=== PATIENT | male | born 1945 | race Caucasian/White ===

== ENCOUNTER 2024-09-28 18:50 | Emergency (ER) | payer MEDICARE, SELFPAY ==
--- OUTSIDE RECORDS SUMMARY | 2024-08-10 10:00 | XMS_ITS | Encounter Summary ---
Author Organization [employer] ([place], [place], [place]) Address [address] [place] [address] Care Team Providers Care Upholstery Handler Name Role Phone Sierra Choi APRN Primary Care Provider + [phone] Troy Boucher MD Unavailable Hay Parker MD Unavailable [phone] Reason for Referral * Surgical (Routine) - Closed Specialty Diagnoses / Procedures Referred By Contac t Referred To Contact Neurosurgery Diagnoses History of lumbar fusion DDD (degenerative disc disease), lumbar Malini Ochoa PA-C [address] [place] [address] Phone: tel: fax: Referral ID Status Reason Start Date Expiration Date V isits Requested Visits Authorized [id number] Closed Specialty Services Required 08/10/2024 08/10/2025 1 1 * Diagnostic X-Ray (Routine) - Closed Specialty Diagnoses / Procedures Referred By Contac t Referred To Contact Radiology Diagnoses Right-sided low back pain without sciatica, unspecified chronicity Procedures XR spine lumbar 2 or 3 views Malini Ochoa PA-C [address] [place] [address] Phone: tel: fax: [facility] Diagnostic Imaging [address] [place] [address] Phone: tel: fax: Referral ID Status Reason Start Date Expiration Date Visits Re quested Visits Authorized [id number] Closed 08/10/2024 08/10/2025 1 1 Reason for Visit * Reason Comments Follow-up Right shoulder Back Pain Lower back Encounter Details Date Type Department Care Team (Late st Contact Info) Description 08/10/2024 10:00 AM EDT [facility] [address] [place] [address] Malini Ochoa PA-C [address] [place] [address] Right-sided low back pain without sciatica, unspecified chronicity (Primary Dx); Right rotator cuff tendonitis; Strain of right trapezius muscle, subsequent encounter; Arthritis of right acromioclavicular joint; Arthritis of left acromioclavicular joint; Osteoarthritis of right glenohumeral joint; History of lumbar fusion; DDD (degenerative disc disease), lumbar Social History Tobacco Use Types Packs/Day Years Used Date Smoking Tobacco: Never Smokeless Tobacco: Never Alcohol Use Standard Drinks/Week Comments Not Currently 0 (1 standard drink = 0.6 oz pur e alcohol) [facility] - Mental Health Answer Date Recorde d Little interest or pleasure in doing things Not at all 06/19/2024 Feeling down, depressed, or hopeless Not at all 06/19/2024 Feeling of Stress Not on file 06/19/2024 Family and Community Support Answer Rob e Recorded Help with Day to Day Activities Not on file 03/10/2023 Feeling Lonely or Isolated Not on file 03/10 Educational Attainment Answer Date Vick rded Speak language other than [place] Island[place] at home Not on file 03/10/2023 Want help with school or training Not on file 03/10/2023 Substance Use Answer Date Recorded Used prescription meds for non-medical reasons N ot on file 03/10/2023 Used illegal drugs past 12 months Not on file 03/10/2023 Sex and Gender Information Value Date Recorded Sex Assigned at Not on file Legal Sex Male 5:19 PM CDT Gender Identity Not on file Sexual Orientation Not on file documented as of this encounter Last Filed Vital Signs Vital Sign Reading Time Taken Comments Blood Pressure 131/83 08/10/2024 10:26 AM EDT Pulse 70 08/10/2024 10:26 AM EDT Temperature - - Respiratory Rate 18 08/10/2024 10:25 AM EDT Oxygen Saturation - - Inhaled Oxygen Concentration - - Weight 104.3 kg (230 lb) 08/10/2024 10:25 AM EDT Height 188 cm (6' 2 ) 08/10/2024 10:25 AM EDT Body Mass Index 29.53 08/10/2024 10:25 AM EDT documented in this encounter Progress Notes * Malini Ochoa PA-C - 08/10/2024 10:00 AM EDT Images from the original note were not included. NAME: Leander Dennis CSN: [id number] : 1945 PCP: Sierra Choi APRN REASON FOR VISIT Follow-up (Right shoulder) and Back Pain (Lower back) Is this Worker's Comp? No HPI Leander Dennis is a 79 y.o. male Patient presents for a follow-up on right shoulder today. Patient states that his symptoms have worsened. Patient states that he is attending PT. They deny any new injuries or complications. Patient reports that he taking oral or topical medications. They rate the severity of their pain today as: 7/10. Patient reports that pain radiates down arm now, and has some tingling with certain ROM. Patient reports that his shoulder is worse when laying on that side. Established patient Date of Injury: Denies any injury Started 2-3 days ago Location of pain: lumbar/sacral Quality of pain: aching and throbbing Radiation of pain: does not radiate Severity of pain: 7/10 getting up from seated position Worse with: bending forwards and getting up from sitting position Better with: Denies Medications/ice: Denies Associated Symptoms: right sided lower back pain Prior history of back pain: 5 years ago Previous trauma: surgery on L4-5 back surgery No history of weight loss, fevers, numb groin/buttocks, urinary or stooling difficulties, weak legs, Hx of cancer, prolonged use of steroids, IV drug use, or recent surgery CURRENT MEDICATIONS Current Outpatient Medications Medication Instructions ALPRAZolam (XANAX) 0.25 MG tablet 1 tablet, 3 times daily PRN aspirin 81 MG EC tablet aspirin 81 mg tablet,delayed release Daily atenoloL (TENORMIN) 25 mg, oral, 2 times daily Gemtesa 75 mg, Every other day hydroCHLOROthiazide (HYDRODIURIL) 12.5 mg, oral, Daily lovastatin (MEVACOR) 20 MG tablet TAKE 1 TABLET EVERY DAY meloxicam (MOBIC) 15 mg, oral, Daily memantine (NAMENDA) 10 mg, 2 times daily multivitamin with minerals tablet 1 tablet, Daily pantoprazole (PROTONIX) 40 mg, oral, Daily polyethylene glycol (MIRALAX) 17 g, Daily sucralfate (CARAFATE) 1 g, oral, 4 times daily tamsulosin (FLOMAX) 0.4 mg cap 24 hr capsule TAKE 1 CAPSULE EVERY DAY ALLERGIES Allergies Allergen Reactions Butorphanol Nausea And Vomiting, Rash and Other (See Comments) Promethazine Nausea And Vomiting, Rash and Other (See Comments) PAST MEDICAL/SURGICAL HISTORY Past Medical History: Diagnosis Date Cancer (HCC) 2003 colon GERD (gastroesophageal reflux disease) Hyperlipemia Hypertension Neuropathy Prostate disease Tremors of nervous system controlled with meds Past Surgical History: Procedure Laterality Date APPENDECTOMY BACK SURGERY CATARACT EXTRACTION, BILATERAL COLON SURGERY colon resection left side, approx 12 inches removed, no other treatement required CORRECTION HAMMER TOE EXCISION,ARM/ELBOW TUMOR Left 03/24/2023 Procedure: EXCISION, NEOPLASM, UPPER ARM OR ELBOW REGION; Surgeon: Hay Parker MD; Location: [facility]; Service: Orthopaedic Surgery; Laterality: Left; LEFT FLANK AND LEFT ELBOW HAND SURGERY HEMORRHOIDECTOMY INGUINAL HERNIA REPAIR MASS EXCISION removed from left forearm REPLACEMENT TOTAL KNEE Right ROTATOR CUFF REPAIR Bilateral 1984, 1985, continued cortisone shots B shoulders UPPER ENDOSCOPY,BIOPSY 11/04/2023 Procedure: ENDOSCOPY, UPPER GI TRACT, WITH BIOPSY; Surgeon: Troy Boucher MD; Location: [facility]; Service: General Surgery;; VASECTOMY WRIST ARTHRODESIS SOCIAL HISTORY Social History Tobacco Use Smoking status: Never Smokeless tobacco: Never Vaping Use Vaping status: Never Used Substance Use Topics Alcohol use: Not Currently Drug use: Never FAMILY HISTORY Family History Problem Relation Name Age of Onset Arthritis Mother Lung cancer Father Hypertension Sister Rheumatologic disease Other Cancer Other REVIEW OF SYSTEMS General: No recent fever or chills, no recent weight loss or weight gain, no insomnia HEENT: No change in vision, no glasses/contacts, no hearing loss, no tinnitus, no vertigo, no congestion/sinus issues CVS: No chest pain, no palpitations, no edema, no varicose veins Resp: No dyspnea, no wheezing, no cough, no hemoptysis GI: No dysphagia, no nausea, no vomiting, no heart burn, no constipation, no diarrhea : No dysuria, no hematuria, no nocturia, no history of chronic UTI Musculoskeletal: See HPI Derm: No rash, no abrasions, no skin discoloration, no history or MRSA Neuro: See HPI Endo: No cold/heat intolerance Heme: No abnormal bruising or bleeding Psych: No depression, no anxiety, no fatigue, no mood swings Scribe Attestation: IBalbina RTR acted as a scribe and transcribed components of the current encounter under the direction of the Attending Provider. I have not been involved in providing any clinical treatments or patient care. Electronically Signed, DEJA Foster OBJECTIVE Vitals: 08/10/24 1025 08/10/24 1026 BP: (!) 143/88 131/83 Pulse: 79 70 Resp: 18 Weight: 104.3 kg (230 lb) Height: 1.88 m (6' 2 ) Ortho Exam right Shoulder Exam General: Awake, Alert, Oriented x3, Well developed Appearance: - Swelling, - deformity, - skin tenting, - scapular winging Palpation: - Crepitus, Tender to palpation: posterior cuff, trap muscle Testing: + Empty Can, - Drop Arm, + Impingement, - Subscap lift off, - Apprehension, -Sulcus sign, -Speeds, - O'Briens, ROM: 120 AFE, 170 PFE, 60 ER, IR decreased, Abduction 90, Wrist and elbow ROM WNL Strength: 4/5 Supraspinatus, 4/5 Subscapularis, 4/5 infraspinatus Neurovascular: Intact Skin: normal appearance with no obvious discoloration or wounds Gait: Normal Cervical Spine Exam General: Awake, Alert, Oriented x3, Well developed Appearance: - localized swelling, - deformity, -masses Tenderness to palpation: - spinous process, - paraspinal, - trapezius left, + trapezius right ROM: Mildly decreased in all directions Testing: + Spurling Test Strength: 5/5 flexion extension Neurovascular: NVI Skin: normal appearance with no discoloration or wounds Lumbar Exam General: Awake, Alert, Oriented x3, Well developed Appearance: - localized swelling, - deformity, -masses Tenderness to palpation: - Spinous process, + Paraspinal tenderness, - Sacral, - Coccyx, + Right SI, - Left SI, - Piriformis, - Gluteal region. ROM: Decreased in all directions Strength: 4/5 Flexion Extension, no atrophy noted in BLE Testing: - Right sided straight leg raise, - Left sided straight leg raise, - Kristy, - FAIR test Neurovascular: NVI, -Homans Skin: normal appearance with no discoloration or wounds Gait: normal IMAGING/OUTSIDE REPORTS 2 views of the lumbar spine were performed in the [facility] office: Radiology report pending Personally reviewed by me in office: fusion of L4-L5 noted with intact well aligned hardware. Severe degenerative changes with disc space narrowing and osteophyte formation throughout lumbar spine, most pronounced at L2-L3 and L3- L4. 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 Haro 2019 Relevant Orders Ambulatory referral to Neurosurgery DDD (degenerative disc disease), lumbar Relevant Orders Ambulatory referral to Neurosurgery PLAN Return for Keep appointment 10/19/2024. For repeat shoulder injections Rest Ice Heat Continue HEP per physical therapy Discussed options for his right shoulder since his last subacromial injection did not give him muchrelief. Discussed US guided GH injection with Dr Carter or possible surgical options including reverse TSA. Also discussed some of his cervical symptoms may be playing a role as well. He would like to see the sensor specialist first, then we will re evaluate at his follow up for cortisone injectionson his right shoulder. Discussed and will place referral to Dr. Magaña as he has performed surgery on patient previously CD of xrays burned today for patient to take to sensor specialist appt. Scribe Attestation: Mary Kate Corona CMA acted as a scribe and transcribed components of the current encounter under the direction of the Attending Provider. I have not been involved in providing anyclinical treatments or patient care. Electronically Signed, Mary Kate Ronquillo CMA I, Taylor Elam, PA-C attest that I have examined the above patient. I have dictated the exam, diagnosis, and plan to the scribe listed above to be transcribed into this document. I have supplemented the above documentation as warranted. I attest that I have reviewed the above documentation in its entirety and concur. Electronically Signed, Malini Ochoa PA-C 08/10/2024 11:47 AM EDT Dharmesh Feliz: Eleno MACARIO / [facility] is undergoing an EHR transition as of this date of service. There may be a delay in uploading older paper and EHR chart data to this new system. The above encounter has been documented to the best of the provider's working knowledge of the EHR in conjunction with medical information provided by the patient (and/or the patient's family member). documented in this encounter Plan of Treatment Upcoming Encounters Date Type Department Care Team (Late st Contact Info) Description 10/19/2024 9:00 AM EDT Office Visit [facility] Orthopedics [address] [address] Malini Ochoa PA-C [address] [place] [id number] 01/24/2025 11:00 AM EST Office Visit [facility] Primary Care [address] [address] Sierra Choi, MELITON [address] [place] [address] 09/26/2025 10:30 AM EDT Office Visit [facility] Primary Care - [place] [address] [place] [address] NguyễnSierra simon, FIXED ROUTE BUS OPERATOR [address] [place] [address] Scheduled Referrals Name Type Priority Associated Diagnoses Order Schedule Ambulatory referral to Neurosurgery Outpatient Referral Routine History of lumbar fusion DDD (degenerative disc disease), lumbar Expected: 08/10/2024, Expires: 08/10/2025 documented as of this encounter Results * XR spine lumbar 2 or 3 views (08/10/2024 10:45 AM EDT) Anatomical Region Laterality Modality L-spine X-Ray 08/11/2024 10:5 9 PM EDT Impressions 08/11/2024 11:10 PM EDT Degenerative and postoperative changes. No fracture. Images reviewed, interpreted, and dictated by Ihsan Obando MD Narrative 08/11/2024 11:10 PM EDT LUMBAR SPINE, THREE VIEWS HISTORY: Pain. FINDINGS: No fracture is identified. Moderate diffuse degenerative disc disease is present most pronounced at L2-3. Mild degenerative retrolisthesis L2-3 is seen. Surgical changes of lower lumbar fusion are noted L4-5. Procedure Note Ihsan Obando MD - 08/11/2024 LUMBAR SPINE, THREE VIEWS HISTORY: Pain. FINDINGS: No fracture is identified. Moderate diffuse degenerative disc disease is present most pronounced at L2-3. Mild degenerative retrolisthesis L2-3 is seen. Surgical changes of lower lumbar fusion are noted L4-5. IMPRESSION: Degenerative and postoperative changes. No fracture. Images reviewed, interpreted, and dictated by Ihsan Obando MD us Malini Ochoa PA-C [facility] ES Final Result documented in this encounter Visit Diagnoses Diagnosis Right-sided low back pain without sciatica, unspecified chronicity- Primary Right rotator cuff tendonitis Strain of right trapezius muscle, subsequent encounter Arthritis of right acromioclavicular joint Arthritis of left acromioclavicular joint Osteoarthritis of right glenohumeral joint History of lumbar fusion DDD (degenerative disc disease), lumbar Degeneration of lumbar or lumbosacral intervertebral disc Right-sided low back pain without sciatica, unspecified chronicity documented in this encounter Care Teams Upholstery Handler Relationship Specialty Start Date End Date , Sierra Marquez, FIXED ROUTE BUS OPERATOR [address] [place] [address] PCP - General Primary Care 11/11/21 [place] [address] [place] [address] Surgeon General Surgery 11/11/21 Hay Parker MD [address] [place] [address] Orthopedic Surgery 05/03/23 documented as of this encounter
--- OUTSIDE RECORDS SUMMARY | 2024-08-10 10:30 | XMS_ITS | Encounter Summary ---
Author Organization [employer] ([place], [place], [place], [place]) Address [address] [place] [address] Care Team Providers Care Computer System Specialist Name Role Phone Sierra Choi APRN Primary Care Provider [phone] Troy Boucher MD Unavailable Hay Parker MD Unavailable [phone] Reason for Referral * Diagnostic X-Ray (Routine) - Closed Specialty Diagnoses / Procedures Referred By Contac t Referred To Contact Radiology Diagnoses Right-sided low back pain without sciatica, unspecified chronicity Procedures XR spine lumbar 2 or 3 views Malini Ochoa PA-C [address] [place] [address] Phone: tel: fax: [facility] Diagnostic Imaging [address] [place] [address] Phone: tel: fax: Referral ID Status Reason Start Date Expiration Date Visits Re quested Visits Authorized [id number] Closed 08/10/2024 08/10/2025 1 1 Reason for Visit * Diagnostic X-Ray (Routine) - Closed Specialty Diagnoses / Procedures Referred By Contac t Referred To Contact Radiology Diagnoses Right-sided low back pain without sciatica, unspecified chronicity Procedures XR spine lumbar 2 or 3 views Malini Ochoa PA-C [address] [place] [address] Phone: tel: fax: [facility] [address] [place] [address] Phone: tel: fax: Referral ID Status Reason Start Date Expiration Date Visits Re quested Visits Authorized [id number] Closed 08/10/2024 08/10/2025 1 1 Encounter Details Date Type Department Care Team (Late st Contact Info) Description 08/10/2024 10:30 AM EDT - 08/10/2024 11:59 PM EDT Hospital Encounter [facility] Diagnostic [facility] [address] [place] [address] Malini Ochoa PA-C [address] [place] [address] Right-sided low back pain without sciatica, unspecified chronicity Discharge Disposition: Home or Self Care Social History Tobacco Use Types Packs/Day Years Used Date Smoking Tobacco: Never Smokeless Tobacco: Never Alcohol Use Standard Drinks/Week Comments Not Currently 0 (1 standard drink = 0.6 oz pur e alcohol) [facility] - Mental Health Answer Date Recorde d [...] Date Vick rded Speak language other than Somali at home Not on file 03/10/2023 Want [...] on file documented as of this encounter Medications at Time of Discharge ALPRAZolam (XANAX) 0.25 MG tablet Take 1 tablet (0.25 mg total) by mouth 3 (three) times daily as needed for anxiety. 11/10/2022 aspirin 81 MG EC tablet aspirin 81 mg tablet,delaye d release Daily atenoloL (TENORMIN) 25 MG tablet Take 1 tablet (25 mg total) by mouth 2 (two) times daily. 06/19/2024 06/19/2025 hydroCHLOROthiazi de (HYDRODIURIL) 12.5 MG tablet TAKE 1 TABLET EVERY DAY 90 tablet 3 12/19/2023 lovastatin (MEVACOR) 20 MG tablet TAKE 1 TABLET EVERY DAY 90 tablet 3 03/02/2024 meloxicam (MOBIC) 15 MG tabletIndications :S/P total knee arthroplasty, right Take 1 tablet (15 mg total) by mouth daily. 90 tablet 3 01/04/2024 memantine (NAMENDA) 10 MG tablet Take 1 tablet (10 mg total) by mouth 2 (two) times daily. 11/29/2022 multivitamin with minerals tablet Take 1 tablet by mouth daily. polyethylene glycol (MIRALAX) 17 gram/dose powder Take 17 g by mouth daily. tamsulosin (FLOMAX) 0.4 mg cap 24 hr capsule TAKE 1 CAPSULE EVERY DAY 90 capsule 3 01/11/2024 Gemtesa 75 mg tab Take 1 tablet (75 mg total) by mouth every other day. 10/16/2023 09/19/2024 pantoprazole (PROTONIX) 40 MG tabletIndications :Gastritis, bile acid reflux,Gastroesop hageal reflux disease without esophagitis Take 1 tablet (40 mg total) by mouth daily. 90 tablet 3 11/11/2023 09/19/2024 sucralfate (CARAFATE) 1 gram tablet Take 1 tablet (1 g total) by mouth 4 (four) times daily. 120 tablet 11 11/04/2023 09/19/2024 documented as of this encounter Plan of Treatment Upcoming Encounters Date Type Department Care Team (Late st Contact Info) Description 10/19/2024 9:00 AM EDT Office Visit [facility] Orthoped[facility] [address] [address] Malini Ochoa PA-C [address] [place] [address] 01/24/2025 11:00 AM EST Office Visit [address] [address] Sierra Choi, MANAGER ADULT [address] [place] [address] 09/26/2025 10:30 AM EDT Office Visit [address] [address] Sierra Choi MANAGER ADULT [address] [place] [address] documented as of this encounter Procedures Procedure Name Priority Date/Time Associated Diagnosis Comments XR LUMBAR SPINE 2 OR 3 VIEWS Routine 08/10/2024 10:45 AM EDT Right-sided low back pain without sciatica, unspecified chronicity documented in this encounter Results * XR spine lumbar [...] interpreted, and dictated by Ihsan Obando MD Malini Ochoa PA-C [facility] ORDERABL ES Final Result documented in this encounter Visit Diagnoses Diagnosis Right-sided low back pain without sciatica, unspecified chronicity documented in this encounter Care Teams Computer System Specialist Relationship Specialty Start Date End Date Sierra, MANAGER ADULT [address] [place] [address] PCP - General Primary Care 11/11/21 Troy Boucher MD [address] [facility] [address] [address] Surgeon General Surgery 11/11/21 Hay Parker MD [address] [place] [address] Orthopedic Surgery 05/03/23 documented as of this encounter
--- OUTSIDE RECORDS SUMMARY | 2024-08-17 08:45 | XMS_ITS | Encounter Summary ---
Author Organization [employer] ([place], [place], [place], [place]) Address [address] [place] [address] Care Team Providers Care Environmental Services Assistant Name Role Phone Sierra Choi APRN Primary Care Provider + [phone] Troy Boucher MD Unavailable Hay Parker MD Unavailable [phone] Reason for Referral * Diagnostic X-Ray (Routine) - Closed Specialty Diagnoses / Procedures Referred By Connie pacheco Referred To Contact Radiology Diagnoses Right hip pain Procedures XR hip 2 views right Malini Ochoa PA-C [address] [place] [address] Phone: tel: fax: [facility] Diagnostic Imaging [address] [place] [phone] Phone: tel: fax: Referral ID Status Reason Start Date Expiration Date Visits Re quested Visits Authorized [id number] Closed 08/17/2024 08/17/2025 1 1 Reason for Visit * Reason Comments Shoulder Pain NC right shoulder pa in Hip Pain NC right hip pain Encounter Details Date Type Department Care Team (Late st Contact Info) Description 08/17/2024 8:45 AM EDT Office Visit [facility] Orthopedics [address] [address] Malini Ochoa PA-C [address] [place] [phone] Right hip pain (Primary Dx); Strain of lumbar region, initial encounter; Greater trochanteric bursitis of right hip; Primary osteoarthritis of right hip Social History Tobacco Use Types Packs/Day Years Used Date Smoking Tobacco: Never Smokeless Tobacco: Never Alcohol Use Standard Drinks/Week Comments Not Currently 0 (1 standard drink = 0.6 oz pur e alcohol) [facility] - Mental Health Answer Date Recorde [...] Date Vick rded Speak language other than Moroccan at home Not on file 03/10/2023 Want [...] Sign Reading Time Taken Comments Blood Pressure 124/81 08/17/2024 8:51 AM EDT Pulse 66 08/17/2024 8:51 AM EDT Temperature - - Respiratory Rate 18 08/17/2024 8:51 AM EDT Oxygen Saturation - - Inhaled Oxygen Concentration - - Weight 98.4 kg (217 lb) 08/17/2024 8:51 AM EDT Height 188 cm (6' 2 ) 08/17/2024 8:51 AM EDT Body Mass Index 27.86 08/17/2024 8:51 AM EDT documented in this encounter Progress Notes * Malini Ochoa PA-C - 08/17/2024 8:45 AM EDT Images from the original note were not included. NAME: Leander Dennis CSN: [id number] : 1945 PCP: Sierra Choi APRN REASON FOR VISIT Shoulder Pain (NC right shoulder pain ) and Hip Pain (NC right hip pain ) Is this Worker's Comp? No HPI Leander Dennis is a 79 y.o. male Patient presents for Right shoulder pain and NC of Right hip pain. . Patient reports symptoms for his hip started on Tuesday morning after working in the garden. He reports sharp pain in his lateral aspect of right hip. He denies groin pain at this time He has history of lumbar issues,(history of back surgery 2019) and has appointment with Dr Tamayo on August 28. Lumbar xrays on August 10. He has treated with heat, ibuprofen and tylenol. He is ambulating with a cane and rates pain today as 8 out of 10 when getting up from a sitting position. Patient also presents for Right shoulder pain today. He denies recent injury. He reports he had steroid injections in both shoulder with Malini in June 2024. He reports he has pain from his neck that radiates down his bicep into his hands/fingers. He stateshis hand /fingers goes numb. He has been going to PT for his shoulders and is no longer going. He rates pain today as 5 out of 10. Shoulder xray on july 17. CURRENT MEDICATIONS Current Outpatient Medications Medication Instructions ALPRAZolam (XANAX) 0.25 MG tablet 1 tablet, 3 times daily PRN aspirin 81 MG EC tablet aspirin 81 mg tablet,delayed release Daily atenoloL (TENORMIN) 25 mg, oral, 2 times daily cyclobenzaprine (FLEXERIL) 10 mg, oral, 2 times daily PRN Gemtesa 75 mg, Every other day hydroCHLOROthiazide (HYDRODIURIL) 12.5 mg, oral, Daily lidocaine (LIDODERM) 5 % ptmd patch 1 patch, transdermal, Daily, Remove & Discard patch within 12 hours or as directed by lovastatin (MEVACOR) 20 MG tablet TAKE 1 [...] ELBOW REGION; Surgeon: Hay Parker MD; Location: [facility]; Service: Orthopaedic Surgery; Laterality: Left; LEFT FLANK AND LEFT ELBOW HAND SURGERY HEMORRHOIDECTOMY INGUINAL HERNIA REPAIR MASS EXCISION removed from left forearm REPLACEMENT TOTAL KNEE Right ROTATOR CUFF REPAIR Bilateral 1984, 1985, continued cortisone shots B shoulders UPPER ENDOSCOPY,BIOPSY 11/04/2023 Procedure: ENDOSCOPY, UPPER GI TRACT, WITH BIOPSY; Surgeon: Troy Boucher MD; Location: [facility]; Service: General Surgery;; VASECTOMY WRIST ARTHRODESIS SOCIAL [...] no fatigue, no mood swings Scribe Attestation: I, Nanette Soto, RTR acted as a scribe and transcribed components of the current encounter under the direction of the Attending Provider. I have not been involved in providing any clinical treatments or patient care. Electronically Signed, Nanette Soto RTFlorentin OBJECTIVE Vitals: 08/17/24 0851 BP: 124/81 Pulse: 66 Resp: 18 Weight: 98.4 kg (217 lb) Height: 1.88 m (6' 2 ) Ortho Exam Right Hip Exam General: Awake, Alert, Oriented x3, Well developed Appearance: - localized swelling, equal leg lengths Palpation: Tenderness + Greater Trochanter, - Piriformis, - Glute, - SI, + Iliac Crest ROM: Full Internal and External Rotation Strength: 4 /5 Testing: - reproducible groin pain with internal and external rotation, -PARAS, - Kristy, -Travis, - Straight leg raise Neurovascular: NVI, -Homans Skin: Normal appearance with no discoloration or wounds Gait: Normal, Negative for Trendelenburg sign right Shoulder Exam General: Awake, Alert, Oriented [...] no obvious discoloration or wounds Gait: Normal IMAGING/OUTSIDE REPORTS X-Rays were performed at [facility] and interpreted today in office of right hip, 2 views revealing: Report pending Personally reviewed in office by me: moderate narrowing of the femoroacetabular joint space. No evidence of acute osseous abnormality. ASSESSMENT Problem List Items Addressed This Visit Musculoskeletal and Integument Primary osteoarthritis of right hip Relevant Medications cyclobenzaprine (FLEXERIL) 10 MG tablet Other Visit Diagnoses Right hip pain - Primary Relevant Orders XR hip 2 views right Strain of lumbar region, initial encounter Relevant Medications lidocaine (LIDODERM) 5 % ptmd patch cyclobenzaprine (FLEXERIL) 10 MG tablet Greater trochanteric bursitis of right hip Relevant Medications lidocaine (LIDODERM) 5 % ptmd patch cyclobenzaprine (FLEXERIL) 10 MG tablet PLAN Return for keep follow up appointment . Rest Ice Discussed irritation iliac crest and lumbar spine muscles with gardening activity Recommended to continue home exercises Discussed pinched nerve pressure will increase if moved a certain way Discussed nerve being pinched can call numbness and tingling in the arm Discussed home exercises/physical therapy for cervical spine, steroid injection and surgery as lastresort Discussed bursa option include a steroid injection to decrease symptoms Discussed muscle relaxor to take orally, topical cream along the area, gentle stretching and rest Advised muscle relaxor can make him drowsy - recommended not to drive with medication Recommended a lidocaine patch along the area to decrease symptoms Recommended to take XR disc of right hip to take to spine doctor, Dr Magaña who he has an appt with in a couple of weeks Discussed keeping follow up appointment in October 19, 2024 Return if new or worsening symptoms occur Activity as tolerated Scribe Attestation: Geovanni Corona CMA acted as a scribe and transcribed components of the current encounter under the direction of the Attending Provider. I have not been involved in providing anyclinical treatments or patient care. Electronically Signed, Geovanni Servin CMA I, Taylor Elam, PA-C attest that I have examined the above patient. I have dictated the exam, diagnosis, and plan to the scribe listed above to be transcribed into this document. I have supplemented the above documentation as warranted. I attest that I have reviewed the above documentation in its entirety and concur. Electronically Signed, Malini Ochoa PA-C 08/17/2024 11:08 AM EDT Dharmesh Feliz: [facility] is undergoing an EHR transition as of [...] Description 10/19/2024 9:00 AM EDT Office Visit [facility] Orthopedics [address] [address] Malini Ochoa PA-C [address] [place] [address] 01/24/2025 11:00 AM EST Office Visit [address] [address] Sierra Choi, LITIGATION ASSOCIATE [address] [place] [address] 09/26/2025 10:30 AM EDT Office Visit [address] [address] Sierra Choi LITIGATION ASSOCIATE [address] [place] [phone] documented as of this encounter Results * XR hip 2 views right (08/17/2024 9:24 AM EDT) Anatomical Region Laterality Modality Pelvis X-Ray 08/17/2024 4:23 PM EDT Impressions 08/17/2024 4:48 PM EDT No acute bony abnormality. Images reviewed, interpreted, and dictated by Dr. Abigail Cummings. Transcribed by Leif Barber PA-C Narrative 08/17/2024 4:48 PM EDT RIGHT HIP HISTORY: Acute right hip pain. COMPARISON: None. FINDINGS: A two view exam demonstrates no acute fracture or dislocation. Moderate degenerative joint disease is seen of the right hip. No soft tissue abnormality is seen. Procedure Note Abigail Cummings MD - 08/17/2024 RIGHT HIP HISTORY: Acute right hip pain. COMPARISON: None. FINDINGS: A two view exam demonstrates no acute fracture or dislocation. Moderate degenerative joint disease is seen of the right hip. No soft tissue abnormality is seen. IMPRESSION: No acute bony abnormality. Images reviewed, interpreted, and dictated by Dr. Abigail Cummings. Transcribed by Leif Barber PA-C Malini Ochoa PA-C IMG DIAGNOSTIC IMAGING ORDERABL ES Final Result documented in this encounter Visit Diagnoses Diagnosis Right hip pain- Primary Pain in joint, pelvic region and thigh Strain of lumbar region, initial encounter Greater trochanteric bursitis of right hip Primary osteoarthritis of right hip Right hip pain Pain in joint, pelvic region and thigh documented in this encounter Care Teams Environmental Services Assistant Relationship Specialty Start Date End Date Sierra Choi, LITIGATION ASSOCIATE [address] [place] [address] PCP - General Primary Care 11/11/21 Troy Boucher MD [address] [place] [address] [id number] Surgeon General Surgery 11/11/21 Hay Parker MD [address] [place] [address] Orthopedic Surgery 05/03/23 documented as of this encounter
--- OUTSIDE RECORDS SUMMARY | 2024-08-17 09:05 | XMS_ITS | Encounter Summary ---
Author Organization [employer] ([place], [place], [place], [place]) Address [address] [place] [address] Care Team Providers Care Textile Conversion Manager Name Role Phone Sierra Choi APRN Primary Care Provider [phone] Troy Boucher MD Unavailable Hay Parker MD Unavailable [phone] Reason for Referral * Diagnostic X-Ray (Routine) - Closed Specialty Diagnoses / Procedures Referred By Contac t Referred To Contact Radiology Diagnoses Right hip pain Procedures XR hip 2 views right Malini Ochoa PA-C [address] [place] [address] Phone: tel: fax: [facility] Diagnostic Imaging [address] [place] [address] Phone: tel: fax: Referral ID Status Reason Start Date Expiration Date Visits Re quested Visits Authorized [id number] Closed 08/17/2024 08/17/2025 1 1 Reason for Visit * Diagnostic X-Ray (Routine) - Closed Specialty Diagnoses / Procedures Referred By Contac t Referred To Contact Radiology Diagnoses Right hip pain Procedures XR hip 2 views right Malini Ochoa PA-C [address] [place] [address] Phone: tel: fax: [facility] Diagnostic Imaging [address] [place] [address] Phone: tel: fax: Referral ID Status Reason Start Date Expiration Date Visits Re quested Visits Authorized [id number] Closed 08/17/2024 08/17/2025 1 1 Encounter Details Date Type Department Care Team (Late st Contact Info) Description 08/17/2024 9:05 AM EDT - 08/17/2024 11:59 PM EDT Hospital Encounter [facility] Diagnostic Imaging [facility] [place] [address] Malini Ochoa PA-C [address] [place] [address] Right hip pain Discharge Disposition: Home or Self Care Social History Tobacco Use Types Packs/Day Years Used Date Smoking Tobacco: Never Smokeless Tobacco: Never Alcohol Use Standard Drinks/Week Comments Not Currently 0 (1 standard drink = 0.6 oz pur e alcohol) [facility] - Mental Health Answer Date [...] Date Vick rded Speak language other than Luxembourger at home Not on file 03/10/2023 Want [...] mg tablet,delayed release Daily atenoloL (TENORMIN) 25 MG tablet Take 1 tablet (25 mg total) by mouth 2 (two) times daily. 06/19/2024 hydroCHLOROthiazid e (HYDRODIURIL) 12.5 MG tablet TAKE 1 TABLET EVERY DAY 90 tablet 3 12/19/2023 lovastatin (MEVACOR) 20 MG tablet TAKE 1 TABLET EVERY DAY 90 tablet 3 03/02/2024 meloxicam (MOBIC) 15 MG tabletIndications: S/P total knee arthroplasty, right Take 1 tablet [...] CAPSULE EVERY DAY 90 capsule 3 01/11/2024 cyclobenzaprine (FLEXERIL) 10 MG tabletIndications: Strain of lumbar region, initial encounter,Greater trochanteric bursitis of right hip Take 1 tablet (10 mg total) by mouth 2 (two) times daily as needed for muscle spasms for up to 14 days. 28 tablet 08/17/2024 5 lidocaine (LIDODERM) 5 % ptmd patchIndications:S train of lumbar region, initial encounter,Greater trochanteric bursitis of right hip Place 1 patch on the skin daily for 30 days Remove & Discard patch within 12 hours or as directed by MD. 30 patch 08/17/2024 5 Gemtesa 75 mg tab Take 1 tablet (75 mg total) by mouth every other day. 10/16/2023 5 pantoprazole (PROTONIX) 40 MG tabletIndications: Gastritis, bile acid reflux,Gastroesoph ageal reflux disease without esophagitis Take 1 tablet (40 mg total) by mouth daily. 90 tablet 3 11/11/2023 5 sucralfate (CARAFATE) 1 gram tablet Take 1 tablet (1 g total) by mouth 4 (four) times daily. 120 tablet 11 11/04/2023 5 documented as of this encounter Plan of Treatment Upcoming Encounters Date Type Department Care Team (Late st Contact Info) Description 10/19/2024 9:00 AM EDT Office Visit [facility] Orthopedics [address] [address] Malini Ochoa PA-C [address] [place], [place] [id number] 01/24/2025 11:00 AM EST Office Visit [address] [address] Sierra Choi, ELECTRICAL FITTER [address] [place] [address] 09/26/2025 10:30 AM EDT Office Visit [address] [address] Sierra Choi, ELECTRICAL FITTER [address] [place] [address] documented as of this encounter Procedures Procedure Name Priority Date/Time Associated Diagnosis Comments XR HIP 2 VIEWS RIGHT Routine 08/17/2024 9:24 AM EDT Right hip pain documented in this encounter Results * XR hip 2 [...] this encounter Visit Diagnoses Diagnosis Right hip pain Pain in joint, pelvic region and thigh documented in this encounter Care Teams Textile Conversion Manager Relationship Specialty Start Date End Date Sierra Choi, ELECTRICAL FITTER [address] [place] [address] PCP - General Primary Care 11/11/21 [place] [address] [place] [address] [place] [address] Surgeon General Surgery 11/11/21 Hay Parker MD [address] [place] [address] Orthopedic Surgery 05/03/23 documented as of this encounter
--- OUTSIDE RECORDS SUMMARY | 2024-09-19 10:30 | XMS_ITS | Encounter Summary ---
Author Organization [employer] ([place], [place], [place], [place]) Address [address] [place] [address] Care Team Providers Care Organ Grinder Name Role Phone Sierra Choi APRN Primary Care Provider Troy Boucher MD Unavailable Hay Parker MD Unavailable [phone] Reason for Visit * Reason Comments Annual Wellness Visit Medicare wellness Encounter Details Date Type Department Care Team (Late st Contact Info) Description 09/19/2024 10:30 AM EDT Office Visit [facility] - [address] [address] Sierra Choi APRN [address] [place] [phone] Medicare annual wellness visit, subsequent (Primary Dx) Social History Tobacco Use Types Packs/Day Years Used Date Smoking Tobacco: Never Smokeless Tobacco: Never Alcohol Use Standard Drinks/Week Comments Not Currently 0 (1 standard drink = 0.6 oz pur e alcohol) [facility] - Mental Health Answer Date Recorde d Little interest or pleasure in doing things Kathleen ral days 09/19/2024 Feeling down, depressed, or hopeless Not at all 09/19/2024 Feeling of Stress Not on file 09/19/2024 Family and Community Support Answer Rob e Recorded Help with Day to Day Activities Not on file 03/10/2023 Feeling Lonely or Isolated Not on file 03/10 Educational Attainment Answer Date Vick rded Speak language other than Romanian at home Not on file 03/10/2023 Want [...] Sign Reading Time Taken Comments Blood Pressure 126/86 09/19/2024 10:23 AM EDT Pulse 79 09/19/2024 10:23 AM EDT Temperature 36.9 C (98.5 F) 09/19/2024 10:23 AM EDT Respiratory Rate - - Oxygen Saturation 94% 09/19/2024 10:23 AM EDT Inhaled Oxygen Concentration - - Weight 101.6 kg (224 lb) 09/19/2024 10:23 AM EDT Height 188 cm (6' 2 ) 09/19/2024 10:23 AM EDT Body Mass Index 28.76 09/19/2024 10:23 AM EDT documented in this encounter Functional Status documented as of this encounter Patient Instructions * Attachments The following attachments cannot be sent through Care Everywhere. * Preventive Care 65 Years and Older Male (Romanian) documented in this encounter Progress Notes * Sierra Choi, HIGHWAY TRUCK DRIVER - 09/19/2024 10:30 AM EDT Subsequent Medicare Wellness Visit Must be 12 months post Initial Medicare Wellness Visit CPT Code is G0439 Guidance from Billing includes the following items: Update Medical/Family history Measurement of Height, Weight, BMI, BP and complete exam including PAP/Breast & Prostate if appropriate Screening for Cognitive Disorder, Depression, ADL, and Falls Update Health Risk Factors Update HM list Provide a written list of risk factors and screening tests to patient in the patient instructions Discuss End of Life & Advance Directives as appropriate. Chief Complaint: Chief Complaint Patient presents with Annual Wellness Visit Medicare wellness Screening Tools Assessment/Documentation: Behavioral Risk Factors: Smoking/Tobacco Use: Do you smoke cigarettes or use other types of tobacco? NONE Alcohol Use: In a typical week, how many days do you drink alcohol? NONE Illicit Drug/Opioid Use: Is there any prior or current use of illicit drugs? NONE Opioid Use: Is there chronic opioid use? No Evaluated for alternate therapy, pain, & opioid use disorder? N/A Diet: Are you on a special diet? NO Self-Assessment of Health Status & Risk Factors: General Well-being: In general, would you say that your health is: GOOD Exercise: How intense is your typical exercise? MODERATE (Like Brisk Walking) Cognitive Screen: Evidence of Cognitive Impairment?: No Plan: Normal Cognition no needs identified (Optional Screenings: Complete Desired Tool in Screenings Section) Minicog total = MMSE total = (Mini-Cog Scorin-2 increased likelihood of cognitive impairment / 3-5 lower likelihood of cognitive impairment) (MMSE Scoring: >27 is normal / 19-26 mild cognitive impairment rescreen 6-12 months / 12-19 mildto mod. dementia: initiate treatment/refer / <12 mod. to severe dementia start or escalate treatment/refer. Consider home care or SNF) Depression Screen: PHQ2 = Patient Health Questionnaire-2 Score: 1 PHQ9 = Patient Health Questionnaire-9 Score: 3 3 Provider Interpretation: Negative. CHI Depression ACO Treatment Plan: no treatment needed based on clinical judgement (PHQ9 Depression Scorin-4 = None / 5-9 = Mild / 10-14 = Mod./ 15-19 = Moderately severe / > 20 = severe) Functional & Safety Assessment: Do you need help from others to perform everyday activities such as: The patient needs assistance with the following ADLs: NONE Have you had bothersome urinary incontinence (bladder leakage) in the last 6 months? No Do you need help from others to take care of such things as: The patient needs assistance with the following activities: NONE Home Safety Screening: Do you live alone? No Does your home HAVE any of the following? The patient's home has the following home safety risks: NONE Does your home LACK any of the following? The patient's home is missing the following safety items: NONE Hearing Loss Screening: Do you have trouble hearing the television or radio when others do not? Yes Do you have to strain or struggle to hear/understand conversations? No Fall Screen: Have you had 2 or more falls in the past year? No Any fall with in jury in the past year? No Are you worried about falling or feel unsteady when standing or walking? Yes Plan: No intervention needed-No fall risk found Advance Directives Discussion: Do you have an Advance Directive (Living Will)? Yes Advance Directives have been reviewed with Leander Dennis and/or family: Plan: Discussed advance directives with patient and Form given if needed (If not on file, [place]. specific Advance Directive Forms can be printed & given to patient as partof the after visit summary) 5-10 Year Screening Plan Medicare Wellness Visit Preventative Services Checklist reviewed with the patient and a printed copy provided when appropriate: Yes HPI: Leander Dennis is a 79 y.o. male who is here for his Medicare Annual Wellness physical exam. His immunizations have been reviewed. His age appropriate risk factors for cardiovascular disease, sexual risk, lifestyle risk have been reviewed and addressed. Other issues that he wishes to have addressed today include: Leander presents to the office today for his routine Medicare wellness. He has been see Ortho for some pain in his neck/shoulder. Ortho didrefer him on to a neurosurgeon who performed a MRI (Dr. Prashant Magaña). He does not perform injections, etc so they did refer him to Dr. Maldonado to have a epidural for his persistent pain. He has a lot of discomfort in the neck and this is causing a lot pain with his sleep. He is going to see Dr. Maldonado September 25. He does do ice, tylenol, and meloxicam. He did have hearing aids placed and is hearing much better. He is enjoying spending time with his grandson. Prior history of Colon Cancer, is followed by Dr. Boucher He was screened for falls risk, depression, functional ability and cognitive impairment today or within the past year. The results and plan are detailed below. ROS: Review of Systems Constitutional: Negative. HENT: Negative. Eyes: Negative. Respiratory: Negative. Cardiovascular: Negative. Gastrointestinal: Negative. Endocrine: Negative. Genitourinary: Negative. Musculoskeletal: Positive for neck pain. Skin: Negative. Allergic/Immunologic: Negative. Neurological: Negative. Hematological: Negative. Psychiatric/Behavioral: Negative. Chronic Problem List: Patient Active Problem List Diagnosis Date Noted Primary osteoarthritis of right hip 08/17/2024 Strain of right trapezius muscle, initial encounter 07/17/2024 Bilateral tinnitus 06/20/2024 Sensorineural hearing loss (SNHL) of both ears 06/20/2024 Epigastric pain 08/17/2023 Hemangioma of skin 04/13/2023 History of total knee arthroplasty 04/12/2023 Prediabetes 06/28/2022 Trigger index finger of left hand 01/22/2022 Trigger finger of left hand 01/21/2022 Arthritis of left acromioclavicular joint 01/08/2022 Arthritis of right acromioclavicular joint 01/08/2022 Rotator cuff tendonitis, right 01/08/2022 Glenohumeral arthritis, right 01/08/2022 Osteoarthritis of right glenohumeral joint 01/08/2022 Right rotator cuff tendonitis 01/08/2022 Rotator cuff arthropathy of left shoulder 01/07/2022 Osteoarthritis of both acromioclavicular joints 01/07/2022 Tendinitis of right rotator cuff 01/07/2022 Acute hepatitis 01/06/2022 Environmental allergies 12/27/2021 Kidney stone 12/27/2021 Polyneuropathy 12/27/2021 Tremor 12/27/2021 General unsteadiness 12/27/2021 Hypercholesterolemia 12/27/2021 Neuropathy 12/27/2021 Allergy to environmental factors 12/27/2021 Arthritis 12/12/2020 Hyperlipidemia 12/12/2020 Allergic rhinitis 06/12/2020 Anxiety 06/12/2020 Retention of urine 06/12/2020 Hypertensive disorder 09/24/2019 Paresthesia 04/17/2018 Essential tremor 08/28/2015 Immunization History: Immunization History Administered Date(s) Administered COVID-19 2022- PFIZER (COMIRNATY) 12 YRS + ([id number]) 12/07/2022, 12/07/2022 COVID-19 2023- PFIZER 12 YRS+ ([id number]) 11/29/2023 COVID-19 mRNA (PF)(LNP-S BIVALENT) ([place] Cap) 12YR+ (PFIZER)([id number] 11/24/2021 Covid 19 Vaccine, Unspecified 04/28/2020, 05/05/2020 Covid-19 Vaccine MRNA (PF) 12yr+ ([email or web address])([id number]) 04/22/2020, 05/13/2020, 12/01/2020 Covid-19 Vaccine MRNA(PF,Premixed)12YR+ ([email or web address])([id number]) 06/02/2021 INFLUENZA QIV ADJUVANTED PF IM ([id number]) 11/16/2019, 12/01/2020 INFLUENZA(FLUZONE)_0.5 mL(65+)TRI HIGH DOSE([id number]) 11/29/2023 Influenza Four-qiv Pf 11/24/2017 Influenza High Dose Preservative Free IM ([id number]) 11/24/2021, 12/07/2022, 12/07/2022 Influenza Quad-qiv Non Pf 12/22/2015, 12/22/2016, 11/23/2017, 10/23/2019 Influenza TIV (IM) 11/24/2021 Influenza Three-TIV Non-PF 4+YRS IM 12/22/2015, 12/22/2016, 11/23/2017, 10/23/2019 Pneumococcal Conjugate (Prevnar) 13-Valent 11/21/2014, 11/21/2014 Pneumococcal Conjugate Vaccine (20-Valent) IM 01/24/2023 Pneumococcal, Nos 11/21/2014 Tdap 07/12/2024 Past Medical/Surgical History: Past Medical History: Diagnosis Date Cancer (HCC) 2004 colon Essential tremor 08/28/2015 From Automated Load;Provider: Domenico Boyer;Status: Active General unsteadiness 08/28/2015 From Automated Load;Provider: Domenico Boyer;Status: Active GERD (gastroesophageal reflux disease) Hyperlipemia Hypertension Neuropathy Neuropathy 08/28/2015 From Automated Load;Provider: Domenico Boyer;Status: Active Prostate disease Tremors of nervous system controlled with meds Past Surgical History: Procedure Laterality Date APPENDECTOMY BACK SURGERY CATARACT EXTRACTION, BILATERAL COLON SURGERY colon resection left side, approx 12 inches removed, no other treatement required CORRECTION HAMMER TOE EXCISION,ARM/ELBOW TUMOR Left 03/24/2023 Procedure: EXCISION, NEOPLASM, UPPER ARM OR ELBOW REGION; Surgeon: Hay Parker MD; Location: [facility]; Service: Orthopaedic Surgery; Laterality: Left; LEFT FLANK AND LEFT ELBOW HAND SURGERY HEMORRHOIDECTOMY INGUINAL HERNIA REPAIR MASS EXCISION removed from left forearm REPLACEMENT TOTAL KNEE Right ROTATOR CUFF REPAIR Bilateral 1984, 1985, continued cortisone shots B shoulders UPPER ENDOSCOPY,BIOPSY 11/04/2023 Procedure: ENDOSCOPY, UPPER GI TRACT, WITH BIOPSY; Surgeon: Troy Boucher MD; Location: [facility]; Service: General Surgery;; VASECTOMY WRIST ARTHRODESIS Family History: Family History Problem Relation Name Age of Onset Arthritis Mother Lung cancer Father Hypertension Sister Rheumatologic disease Other Cancer Other Extended Social History: Social History Socioeconomic History Marital status: Spouse name: Not on file Number of children: Not on file Years of education: Not on file Highest education level: Not on file Occupational History Not on file Tobacco Use Smoking status: Never Smokeless tobacco: Never Vaping Use Vaping status: Never Used Substance and Sexual Activity Alcohol use: Not Currently Drug use: Never Sexual activity: Not on file Other Topics Concern Not on file Social History Narrative Not on file Social Drivers of Health Food Insecurity: Not on file Transportation: Not on file Care Team: Current Providers & Suppliers (DME & other suppliers can be entered as free text when adding Care Team members) Patient Care Team: Sierra Choi APRN as PCP - General (Primary Care) Troy Boucher MD as Surgeon (General Surgery) Hay Parker MD (Orthopedic Surgery) Health Maintenance Topic Date Due Medicare Subsequent Wellness (year 3+) 01/25/2024 Shingles Vaccine (Zoster) (1 of 2) 08/10/2025 (Originally 07/02/1993) Respiratory Syncytial Virus (RSV) Adult or (1 - 1-dose 75+ series) 10/16/2025 (Originally07/02/2018) COVID-19 VACCINE (2023- season) 2025 (Originally 05/29/2024) Influenza Vaccine (1) 10/22/2024 Tobacco Cessation Counseling and Screening (12+) 08/17/2025 Depression Screening (12+) 09/19/2025 DTAP/TDAP/TD VACCINES (2 - Td or Tdap) 07/12/2034 Pneumococcal 50+ years Completed Falls Risk Screening Completed Objective: Outpatient Medications Prior to Visit Medication Sig Dispense Refill ALPRAZolam (XANAX) 0.25 MG tablet Take 1 tablet (0.25 mg total) by mouth 3 (three) times daily as needed for anxiety. aspirin 81 MG EC tablet aspirin 81 mg tablet,delayed release Daily atenoloL (TENORMIN) 25 MG tablet Take 1 tablet (25 mg total) by mouth 2 (two) times daily. hydroCHLOROthiazide (HYDRODIURIL) 12.5 MG tablet TAKE 1 TABLET EVERY DAY 90 tablet 3 lovastatin (MEVACOR) 20 MG tablet TAKE 1 TABLET EVERY DAY 90 tablet 3 meloxicam (MOBIC) 15 MG tablet Take 1 tablet (15 mg total) by mouth daily. 90 tablet 3 memantine (NAMENDA) 10 MG tablet Take 1 tablet (10 mg total) by mouth 2 (two) times daily. multivitamin with minerals tablet Take 1 tablet by mouth daily. polyethylene glycol (MIRALAX) 17 gram/dose powder Take 17 g by mouth daily. tamsulosin (FLOMAX) 0.4 mg cap 24 hr capsule TAKE 1 CAPSULE EVERY DAY 90 capsule 3 Gemtesa 75 mg tab Take 1 tablet (75 mg total) by mouth every other day. (Patient not taking: Reported on 09/19/2024) pantoprazole (PROTONIX) 40 MG tablet Take 1 tablet (40 mg total) by mouth daily. (Patient not taking: Reported on 09/19/2024.) 90 tablet 3 sucralfate (CARAFATE) 1 gram tablet Take 1 tablet (1 g total) by mouth 4 (four) times daily. (Patient not taking: Reported on 09/19/2024.) 120 tablet 11 Facility-Administered Medications Prior to Visit Medication Dose Route Frequency Provider Last Rate Last Admin lidocaine (XYLOCAINE) injection 1% 1 mg other - see admin instructions/comments Once Michael Garcia PA-C VS: BP 126/86 Pulse 79 Resp Temp 98.5 ??F (36.9 ??C) (Temporal Artery) SpO2 94% Wt 101.6 kg (224 lb) Ht 1.88 m (6' 2 ) Body mass index is 28.76 kg/m??. PE: Physical Exam Constitutional: Appearance: Normal appearance. Pulmonary: Effort: Pulmonary effort is normal. Skin: General: Skin is warm and dry. Neurological: Mental Status: He is alert and oriented to person, place, and time. Psychiatric: Mood and Affect: Mood normal. Behavior: Behavior normal. Thought Content: Thought content normal. Judgment: Judgment normal. Results for orders placed or performed in visit on 04/26/24 CBC with platelet count + automated diff Result Value Ref Range WBC 9.1 3.4 - 10.8 x10E3/uL RBC 4.93 4.14 - 5.80 x10E6/uL Hemoglobin 15.7 13.0 - 17.7 g/dL Hematocrit 47.9 37.5 - 51.0 % MCV 97 79 - 97 fL MCH 31.8 26.6 - 33.0 pg MCHC 32.8 31.5 - 35.7 g/dL RDW 12.4 11.6 - 15.4 % Platelets 210 150 - 450 x10E3/uL % Neutros 62 Not Estab. % % Lymphs 22 Not Estab. % % Monos 11 Not Estab. % % Eos 3 Not Estab. % % Baso 1 Not Estab. % # Neutros 5.7 1.4 - 7.0 x10E3/uL # Lymphs 2.0 0.7 - 3.1 x10E3/uL # Monos 1.0 (H) 0.1 - 0.9 x10E3/uL # Eos 0.2 0.0 - 0.4 x10E3/uL Baso (Absolute) 0.1 0.0 - 0.2 x10E3/uL % Immature Grans 1 Not Estab. % # Immature Grans 0.1 0.0 - 0.1 x10E3/uL Comprehensive metabolic panel Result Value Ref Range Glucose, Serum 76 70 - 99 mg/dL BUN 17 8 - 27 mg/dL Creatinine, Serum 1.04 0.76 - 1.27 mg/dL EGFR 73 >59 mL/min/1.73 BUN/Creatinine Ratio 16 10 - 24 Sodium, Serum 140 134 - 144 mmol/L Potassium, Serum 4.1 3.5 - 5.2 mmol/L Chloride, Serum 99 96 - 106 mmol/L Carbon Dioxide, Total 25 20 - 29 mmol/L Calcium, Serum 9.8 8.6 - 10.2 mg/dL Protein, Total, Serum 6.5 6.0 - 8.5 g/dL Albumin, Serum 4.4 3.8 - 4.8 g/dL Globulin, Total 2.1 1.5 - 4.5 g/dL Bilirubin, Total 1.3 (H) 0.0 - 1.2 mg/dL Alkaline Phosphatase, S 88 44 - 121 IU/L AST (SGOT) 18 0 - 40 IU/L ALT (SGPT) 19 0 - 44 IU/L Lipid panel Result Value Ref Range Cholesterol, Total 170 100 - 199 mg/dL Triglycerides 132 0 - 149 mg/dL HDL Cholesterol 55 >39 mg/dL VLDL Cholesterol Thaddeus 23 5 - 40 mg/dL LDL Calculated 92 0 - 99 mg/dL Hemoglobin A1c Result Value Ref Range Hemoglobin A1c 6.2 (H) 4.8 - 5.6 % PSA Result Value Ref Range Prostate Specific Ag, Serum 1.1 0.0 - 4.0 ng/mL Amylase Result Value Ref Range Amylase, Serum 36 31 - 110 U/L Lipase Result Value Ref Range Lipase, Serum 21 13 - 78 U/L Assessment/Plan: Diagnoses and all orders for this visit: Medicare annual wellness visit, subsequent Discussion/Summary: Screenings up to date. He has no immediate questions or concerns. Is going to continue to follow upfor his pain and has epidural scheduled for next week documented in this encounter Plan of Treatment Upcoming Encounters Date Type Department Care Team (Late st Contact Info) Description 10/19/2024 9:00 AM EDT Office Visit [facility] [address] [phone] Malini Ochoa PA-C [address] [place] [address] 01/24/2025 11:00 AM EST Office Visit [place] [phone] Sierra Choi APRN [address] [place] [address] 09/26/2025 10:30 AM EDT Office Visit [address] [phone] Sierra Choi APRN [address] [place] [address] documented as of this encounter Visit Diagnoses Diagnosis Medicare annual wellness visit, subsequent- Primary documented in this encounter Care Teams Organ Grinder Relationship Specialty Start Date End Date , Sierra Marquez, HIGHW[address] TRUCK DRIVER [address] [place] [address] PCP - General Primary Care 11/11/21 [place] [address] [place] [id number] Surgeon General Surgery 11/11/21 Hay Parker MD [address] [place] [id number] Orthopedic Surgery 05/03/23 documented as of this encounter
[2024-09-28] VITALS (9 sets, daily range): BP systolic 108–164; BP diastolic 73–113; PULSE 62–69; RESP 12–16; TEMP 36.6; O2SAT 94–98; BMI 28.6
--- NOTE | 2024-09-28 18:57 | ECG_ITS ---
APPROVED REPORT Exam: Resting ECG HR:65 bpm ECG Measurements Heart Rate 65 AXES AK 166 P 58 QRSd 114 QRS -18 QT 418 T 56 QTc 430 Conclusion Normal sinus rhythm at [address] or T wave changes concerning for ischemia Electronically signed by : Mary Kate Sinclair, 09/29/2024 02:17:26
--- NOTE | 2024-09-28 19:06 | HMH.EDGENADL ---
Discharge Plan Disposition Patient Disposition: Home, Self-Care Condition: Good Referrals Follow up/Referrals: Jimmy Gutiérrez MD [Staff Physician, Hospitalist] - See instructions Provider,MD Dion [Primary Care Provider, Medical] - See instructions Activity Restrictions/Add. Instructions Additional Instructions/Restrictions: We have scheduled an appointment for you to see Dr. Gutiérrez on Tuesday in clinic for your syncope at 9am. Return to the emergency department for any acute or worsening symptoms. Clinical Impressions Clinical Impression: Syncope Instructions Patient Instructions: DI for Acute Abdominal Pain Print Language Print Language: French Discharge ED Provider: Mary Kate Sinclair General Adult HPI General Chief complaint: Abdominal Pain Stated complaint: Passed out,scraped right hand Time Seen by Provider: 09/28/24 19:06 History of Present Illness HPI narrative: Patient is an otherwise healthy 79-year-old male who presented to the emergency department after syncope. Patient states that he was in a auction tonight when the room got really hot. Patient states that he was walking to go get a drink of water when he felt hot and felt like he was getting tunnel vision and he slumped down. Patient denies hitting his head. Patient denies any current complaints states that he did not have chest pain or shortness of breath prior to the event. Patient did not have any abdominal pain nausea vomiting or diarrhea. Patient states that he has been eating and drinking appropriately today. Patient has otherwise not felt ill. Patient denies any history of blood clots. Patient denies any cardiac history. Related Data Allergies Allergy/AdvReac Type Severity Reaction Status Date / Time butorphanol (From Stadol) Allergy Unknown Verified 09/28/24 22:56 allergy reaction phenobarbital Allergy Unknown Verified 09/28/24 22:56 allergy reaction PFSH [facility] Disclaimer: The information contained in this section may have been updated after the patient was seen, as this information can be updated by other users. Social History Smoking Status: Never smoker alcohol intake: never current occupational status: other Travel in the last 8 weeks?: None ROS Obtained: Yes All systems reviewed & no additional complaints except as documented and Yes Systems reviewed as appropriate & no additional complaints except as documented Physical Exam General General appearance: alert and in no apparent distress Head Head exam: atraumatic, normocephalic and normal inspection Eye Eye exam: Present normal appearance, PERRL and EOMI; Absent scleral icterus ENT ENT exam: Present normal exam and normal external ear exam Neck Neck exam: Present normal inspection and full ROM Chest Chest inspection: Present normal inspection and symmetric chest wall rise Respiratory Respiratory exam: Present normal lung sounds bilaterally; Absent respiratory distress or wheezes Cardiovascular Cardiovascular exam: Present regular rate, normal rhythm and normal heart sounds Abdominal Exam Abdominal exam: Present soft and distention; Absent tenderness, guarding or rebound Extremities Exam Extremities exam: Present normal inspection and full ROM Back Exam Back exam: Present normal inspection and full ROM Neurological Exam Neurological exam: Present alert and oriented X3 Psychiatric Psychiatric exam: Present normal affect and normal mood Skin Skin exam: Present warm and dry Medical Decision Making Medical Records Medical records reviewed: Yes I reviewed the patient's medical records. Screening: Per USPSTF and CDC recommendations, given the prevalence of disease in our region, it is our hospital?s policy to screen for HIV and viral Hepatitis for all patients aged 18 and over and those with ongoing risk factors. Derek Inquiry Pt receiving controlled substance: No Vital Signs: 09/28/24 19:10 09/28/24 20:00 09/28/24 20:30 Temperature 97.9 F Temperature Source Oral Pulse Rate 63 63 Pulse Rate [Right Radial] 62 Respiratory Rate 16 12 13 Blood Pressure 111/75 116/73 Blood Pressure [Right Arm] 108/74 L Blood Pressure Mean Blood Pressure Mean [Right Arm] 85 Blood Pressure Source Blood Pressure Source [Right Arm] Automatic Cuff Blood Pressure Position Blood Pressure Position [Right Arm] Supine 02 Sat by Pulse Oximetry 98 98 97 Oxygen Delivery Method Room Air 09/28/24 21:00 09/28/24 21:30 09/28/24 22:01 Temperature Temperature Source Pulse Rate 69 66 65 Pulse Rate [Right Radial] Respiratory Rate 14 16 Blood Pressure 108/74 L 122/82 150/95 H Blood Pressure [Right Arm] Blood Pressure Mean 95 Blood Pressure Mean [Right Arm] Blood Pressure Source Blood Pressure Source [Right Arm] Blood Pressure Position Blood Pressure Position [Right Arm] 02 Sat by Pulse Oximetry 94 L 98 98 Oxygen Delivery Method 09/28/24 22:58 09/28/24 23:01 09/28/24 23:30 Temperature Temperature Source Pulse Rate 67 67 63 Pulse Rate [Right Radial] Respiratory Rate 16 14 15 Blood Pressure 159/112 H 164/113 H 156/106 H Blood Pressure [Right Arm] Blood Pressure Mean Blood Pressure Mean [Right Arm] Blood Pressure Source Blood Pressure Source [Right Arm] Blood Pressure Position Blood Pressure Position [Right Arm] 02 Sat by Pulse Oximetry 97 96 95 Oxygen Delivery Method 09/29/24 00:14 09/29/24 01:01 Temperature 97.9 F Temperature Source Oral Pulse Rate 64 76 Pulse Rate [Right Radial] Respiratory Rate 17 16 Blood Pressure 156/106 H 138/90 Blood Pressure [Right Arm] Blood Pressure Mean Blood Pressure Mean [Right Arm] Blood Pressure Source Automatic Cuff Blood Pressure Source [Right Arm] Blood Pressure Position Supine Blood Pressure Position [Right Arm] 02 Sat by Pulse Oximetry 97 Oxygen Delivery Method Room Air Lab Data Lab results reviewed: Yes I reviewed the patient's lab results. Lab Results 09/28/24 19:58: WBC 9.3, RBC 4.15 L, Hgb 13.6 L, Hct 40.9 L, MCV 98.6 H, MCH 32.8 H, MCHC 33.3, RDW 13.5, Plt Count 186, MPV 9.8, Neut % (Auto) 69.7, Lymph % (Auto) 14.3, [place] % (Auto) 12.4 H, Eos % (Auto) 1.9, Baso % (Auto) 0.5, Neut # (Auto) 6.5, Lymph # (Auto) 1.3, [place] # (Auto) 1.2 H, Eos # (Auto) 0.2, Baso # (Auto) 0.1, D-Dimer 1.69 H, Sodium 137, Potassium 3.9, Chloride 104, Carbon Dioxide 30, Anion Gap 6.9, BUN 19, Creatinine 0.90, Estimated GFR 81, Est GFR ( Amer) 98, Glucose 160 H, Calcium 9.2, Total Bilirubin 0.9, AST 29, ALT 23, Alkaline Phosphatase 64, Troponin I 0.04 H, Total Protein 5.8 L, Albumin 3.7, Globulin 2.1, Albumin/Globulin Ratio 1.8 09/28/24 23:01: Troponin I 0.04 H 09/28/24 19:58 09/28/24 19:58 Orders (Tests/Meds): ED MEDICATIONS Discontinued Medications Generic Name Dose Route Start Last Admin Trade Name Freq PRN Reason Stop Dose Admin Iopamidol 70 ml 09/28/24 21:14 09/28/24 21:15 Iopamidol-370 (76%);100ml Bottle IV 09/28/24 21:15 70 ml ONCE ONE Administration Sodium Chloride 40 ml 09/28/24 21:14 09/28/24 21:14 0.9 % Sodium Chloride 50 Ml Vial IV 09/28/24 21:15 40 ml ONCE ONE Administration Sodium Chloride 10 ml 09/28/24 21:14 09/28/24 21:15 Sodium Chloride 0.9% 10ml Syr (Rad Only) IV 10/28/24 21:13 10 ml NEEDED PRN Administration Maintain IV Site ORDERS Category Date Time Status CT angio chest PE protocol Stat Cat Scan 09/28/24 20:53 Completed CBC w/Auto Diff [Complete Blood Count Auto Diff] Stat Lab 09/28/24 19:58 Completed CMP [Comprehensive Metabolic Panel] Stat Lab 09/28/24 19:58 Completed D-Dimer Stat Lab 09/28/24 19:58 Completed Trop I [Troponin I] Stat Lab 09/28/24 19:58 Completed Troponin I Q3H Lab 09/28/24 23:01 Completed Medical Decision Narrative: Patient is an otherwise healthy 79-year-old male who presented to the emergency department with syncope. On arrival, patient was initially mildly hypertensive. Vital signs were otherwise unremarkable. Differential includes but not limited to: ACS/[place], arrhythmia, pulmonary embolism, electrolyte abnormalities, pneumonia, pneumothorax, amongst others.. Patient's labs were reviewed and interpreted by myself, CBC showed no leukocytosis, hemoglobin was stable. CMP was unremarkable. Patient's initial troponin was 0.04, second troponin 0.04 after 3hours. Patient's D-dimer was elevated. CT PE was obtained which showed no pulmonary embolism, pneumothorax pleural effusion, pneumonia or other acute pathology. Patient's EKG was reviewed and interpreted by myself and showed normal sinus rhythm without acute ischemic changes concerning for ischemia. Given patient's likely vasovagal syncope in the setting of being overheated at an auction, patient's Tongan syncope score was low and I did not feel that patient needed emergent cardiology consult at this time. Patient's troponins were flat. EKG was unremarkable. Patient was scheduled an appointment with cardiology for Tuesday morning at 9 AM for syncope workup. Return precautions were discussed the patient was otherwise discharged home in stable condition. Critical Care Critical Care Time Critical Care Time: No
--- OUTSIDE RECORDS SUMMARY | 2024-09-28 19:12 | XMS_ITS | Encounter Summary ---
Author Organization [employer] ([place], [place], [place], [place]) Address [address] [place] [address] Care Team Providers Care Turning Lathe Tender Name Role Phone NguyễnSierra simon Jimmy COELHO Primary Care Provider [phone] Troy Boucher MD Unavailable Hay Parker MD Unavailable [phone] Reason for Visit * Reason Comments New Med Request Encounter Details Date Type Department Care Team (Late st Contact Info) Description [facility] [address] [address] Hay Parker MD [address] [place] [address] Social History Tobacco Use Types Packs/Day Years Used Date Smoking Tobacco: Never Smokeless Tobacco: Never Alcohol Use Standard Drinks/Week Comments Not Currently 0 (1 standard drink = 0.6 oz pur e alcohol) Family and Community Support Answer Rob e Recorded Help with Day to Day Activities Not on file 03/10/2023 Feeling Lonely or Isolated Not on file 03/10 Educational Attainment Answer Date Vick rded Speak language other than Swiss at home Not on file 03/10/2023 Want [...] on file documented as of this encounter Plan of Treatment Upcoming Encounters Date Type Department Care Team (Late st Contact Info) Description 10/19/2024 9:00 AM EDT Office Visit [facility] Orthopedics [place] [phone] Malini Ochoa PA-C [address] [place] [address] 01/24/2025 11:00 AM EST Office Visit [place] [phone] Sierra Choi DIESEL TECHNICIAN [address] [place] [address] 09/26/2025 10:30 AM EDT Office Visit [address] [address] Sierra Choi DIESEL TECHNICIAN [address] [place] [phone] documented as of this encounter Visit Diagnoses Not on filedocumented in this encounter Care Teams Turning Lathe Tender Relationship Specialty Start Date End Date Sierra Choi DIESEL TECHNICIAN [address] [place] [address] PCP - General Primary Care 11/11/21 [place] [address] [place] [address] [address] Surgeon General Surgery 11/11/21 Hay Parker MD [address] [place] [address] Orthopedic Surgery 05/03/23 documented as of this encounter
--- OUTSIDE RECORDS SUMMARY | 2024-09-28 19:13 | XMS_ITS | Encounter Summary ---
Author Organization [employer] ([place], [place], [place], [place]) Address [address] [place] [address] Care Team Providers Care School Cook Name Role Phone Sierra Choi MELITON Primary Care Provider [phone] Mer Boucher MD Unavailable Hay Parker MD Unavailable [phone] Encounter Details Date Type Department Care Team (Late st Contact Info) Description 06/20/2020 Transcribed Document [facility] [address] [place] [address] ProviderGama MD [address] [place] [address] Social History Tobacco Use Types Packs/Day Years Used Date Smoking Tobacco: Never Assessed Sex and Gender Information Value Date Recorded Sex Assigned at Not on file Legal Sex Male 5:19 PM CDT Gender Identity Not on file Sexual Orientation Not on file documented as of this encounter Miscellaneous Notes * Cerner Conversion Note - Gama Cornejo MD - 06/20/2020 9:16 AM CDT [facility] Endo PACU Summary Primary Physician: MER BOUCHER MD-KIMBERLY Finalized Date/Time: 06/20/20 10:00:58 Pt. Name: CHEYANNE DENNISMEGHNA Rodas D.O.B./Sex: 1945 Male Med Rec #: [id number] Physician: MER BOUCHER MD-KIMBERLY Financial #: [id number] Pt. Type: O Room/Bed: END/ Admit/Disch: 06/20/20 08:12:00 - Institution: [facility] Endo PACU Case Times Entry 1 In PACU I 06/20/20 09:37:00 Ready for PACU 06/20/20 09:58:00 Discharge Discharge from PACU 06/20/20 10:03:00 I Last Modified By: Malissa Broderick Rn 06/20/20 10:00:[address] [facility] Endo PACU Case Times Audit 06/20/20 10:00:56 House Principal: [id number] Modifier: [id number] <+> 1 Discharge from PACU I 06/20/20 09:55:53 House Principal: [id number] Modifier: [id number] <+> 1 Ready for PACU Discharge Finalized By: Malissa Broderick Rn Document Signatures Signed By: Malissa Broderick Rn 06/20/20 10:00 Electronically signed by [facility] Conversion Community Planner Cerner at 06/07/2022 12:42 PM CDT documented in this encounter Plan of Treatment Upcoming Encounters Date Type Department Care Team (Late st Contact Info) Description 10/19/2024 9:00 AM EDT Office Visit [facility] Orthopedics [place] [phone] Malini Ochoa PA-C [address] [place], [place] [phone] 01/24/2025 11:00 AM EST Office Visit [place] [phone] Sierra Choi APRN [address] [place] [address] 09/26/2025 10:30 AM EDT Office Visit [address] [address] Sierra Choi APRN [address] [place] [address] documented as of this encounter Visit Diagnoses Not on filedocumented in this encounter Care Teams School Cook Relationship Specialty Start Date End Date , Sierra Marquez, RESIDENTIAL CARPET INSTALLER [address] [place] [address] PCP - General Primary Care 11/11/21 Mer Boucher MD [address] [place] [address] Surgeon General Surgery 11/11/21 Hay Parker MD [address] [place] [address] Orthopedic Surgery 05/03/23 documented as of this encounter
--- OUTSIDE RECORDS SUMMARY | 2024-09-28 19:13 | XMS_ITS | Encounter Summary ---
Author Organization [employer] ([place], [place], [place], [place]) Address [address] [place] [address] Care Team Providers Care Sales Data Analyst Name Role Phone Jimbo Sierra Marquez APRN Primary Care Provider [phone] Troy Boucher MD Unavailable Hay Parker MD Unavailable [phone] Reason for Visit * Reason Onset Date Comments other 08/10/2024 Encounter Details Date Type Department Care Team (Late st Contact Info) Description 08/10/2024 Telephone [facility] Orthopedics - [address] [place] [address] Malini Ochoa PA-C [address] [place] [address] other Social History Tobacco Use Types Packs/Day Years Used Date Smoking Tobacco: Never Smokeless Tobacco: Never Alcohol Use Standard Drinks/Week Comments Not Currently 0 (1 standard drink = 0.6 oz pur e alcohol) [facility] - Mental Health Answer Date Recorde [...] Date Vick rded Speak language other than Nicaraguan at home Not on file 03/10/2023 Want [...] as of this encounter Miscellaneous Notes * Telephone Encounter - Nanette Soto - 08/10/2024 11:24 AM EDT patients called nurse line with question about PT. I called patient, he was unsure why his called. He stated he saw malini ochoa today and was taken off PT for now. documented in this encounter Plan of Treatment Upcoming Encounters Date Type Department Care Team (Late st Contact Info) Description 10/19/2024 9:00 AM EDT Office Visit [facility] Orthopedics [place] [address] Malini Ochoa PA-C [address] [place], [place] [phone] 01/24/2025 11:00 [place] [address] Sierra Choi APRN [address] [place] [phone] 09/26/2025 10:30 AM EDT Office Visit [place] [phone] Sierar Choi APRN [address] [place] [phone] documented as of this encounter Visit Diagnoses Not on filedocumented in this encounter Care Teams Sales Data Analyst Relationship Specialty Start Date End Date , Sierra Marquez, FURNACE STOCK INSPECTOR [address] [place] [address] PCP - General Primary Care 11/11/21 Troy Boucher MD [address] [place] [address] Surgeon General Surgery 11/11/21 Hay Parker MD [address] [place] [address] Orthopedic Surgery 05/03/23 documented as of this encounter
--- OUTSIDE RECORDS SUMMARY | 2024-09-28 19:13 | XMS_ITS | Encounter Summary ---
Author Organization [employer] ([place], [place], [place], [place]) Address [address] [place] [address] Care Team Providers Care Product Development Actuary Name Role Phone Sierra Choi MELITON Primary Care Provider [phone] Mer Boucher MD Unavailable Hay Parker MD Unavailable Encounter Details Date Type Department Care Team (Late st Contact Info) Description 06/20/2020 Transcribed Document [facility] Family Medicine [address] [place] [address] ProviderGama MD [address] [place] [address] Social History Tobacco Use Types Packs/Day Years Used Date Smoking Tobacco: Never Assessed Sex and Gender Information Value Date Recorded Sex Assigned at Not on file Legal Sex Male 5:19 PM CDT Gender Identity Not on file Sexual Orientation Not on file documented as of this encounter Miscellaneous Notes * Cerner Conversion Note - Gama Cornejo MD - 06/20/2020 9:00 AM CDT [facility] Endo PreOp Summary Primary Physician: MER BOUCHER MD-KIMBERLY Finalized Date/Time: 06/20/20 08:59:46 Pt. Name: LEANDER DENNIS /Sex: 1945 Male Med Rec #: [id number] Physician: MER BOUCHER MD-KIMBERLY Financial #: [id number] Pt. Type: O Room/Bed: END/ Admit/Disch: 06/20/20 08:12:00 - Institution: [facility] Endo PreOp Case Times Entry 1 In Preop 06/20/20 08:34:00 Ready for Holding n/a Room Patient Ready for n/a Surgery Patient Out of Preop 06/20/20 08:59:00 Patient Out of 06/20/20 08:59:00 Holding Room Last Modified By: Vannesa Santiago RN-PATIENT CARE BEDSIDE NON-EXEMPT 06/20/20 08:59:44 [facility] Endo PreOp Case Times Audit 06/20/20 08:59:44 Plant Health Manager: LEANNE Modifier: [email or web address] <+> 1 Patient Out of Preop <+> 1 Patient Out of Holding Room Finalized By: Vannesa Santiago RN-PATIENT CARE BEDSIDE NON-EXEMPT Document Signatures Signed By: Vannesa Santiago RN-PATIENT CARE BEDSIDE NON-EXEMPT 06/20/20 08:59 Electronically signed by Jennifer [facility] Conversion Honey Liquefier Cerner at 06/07/2022 12:41 PM CDT documented in this encounter Plan of Treatment Upcoming Encounters Date Type Department Care Team (Late st Contact Info) Description 10/19/2024 9:00 AM EDT Office Visit [facility] Orthopedics [address] [address] Malini Ochoa PA-C [address] [place], [place] [phone] 01/24/2025 11:00 AM EST Office Visit [address] [address] Sierra Choi APRN [address] [place] [address] 09/26/2025 10:30 AM EDT Office Visit [address] [address] Sierra Choi, ACCOUNTING OFFICE MANAGER [address] [place] [address] documented as of this encounter Visit Diagnoses Not on filedocumented in this encounter Care Teams Product Development Actuary Relationship Specialty Start Date End Date Sierra Choi, ACCOUNTING OFFICE MANAGER [address] [place] [address] PCP - General Primary Care 11/11/21 [place] [address] [place] [address] Surgeon General Surgery 11/11/21 Hay Parker MD [address] [place] [address] Orthopedic Surgery 05/03/23 documented as of this encounter
--- OUTSIDE RECORDS SUMMARY | 2024-09-28 19:14 | XMS_ITS | Encounter Summary ---
Author Organization [employer] ([place], [place], [place], [place]) Address [address] [place] [address] Care Team Providers Care Manager Body Name Role Phone Sierra Choi Jimmy COELHO Primary Care Provider [phone] Troy Boucher MD Unavailable Hay Parker MD Unavailable [phone] Reason for Visit * Reason Onset Date Comments Results 08/01/2024 Encounter Details Date Type Department Care Team (Late st Contact Info) Description 08/01/2024 Telephone [facility] [address] [place] [address] Troy Boucehr MD [address] [place], [place] [id number] Results Social History Tobacco Use Types Packs/Day Years Used Date Smoking Tobacco: Never Smokeless Tobacco: Never Alcohol Use Standard Drinks/Week Comments Not Currently 0 (1 standard drink = 0.6 oz pur e alcohol) [facility] - Mental Health Answer Date Recorde d [...] Date Vick rded Speak language other than German at home Not on file 03/10/2023 Want [...] encounter Miscellaneous Notes * Telephone Encounter - Latonya Trinity - 08/01/2024 3:34 PM EDT Pt's called 07/27/2024 regarding Leander's recent CT performed in June 2024 at an outside facility. They had received a letter to schedule his FU ct pancreatic protocol for July 2024. II spoke with Dr boucher today and he reviewed the CT from June and said it was fine to use that one and the patient will not need to repeat the CT. 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 We will repeat CT pancreatic protocol in one year, June 2025. Patient placed on recall for this. Called and let her know all of the above. She understood and agreed. documented in this encounter Plan of Treatment Upcoming Encounters Date Type Department Care Team (Late st Contact Info) Description 10/19/2024 9:00 AM EDT Office Visit [facility] [address] [address] Malini Ochoa PA-C [address] [place] [address] 01/24/2025 11:00 AM EST Office Visit [facility] Primary [facility] [address] [address] Sierra Choi APRN [address] [place] [address] 09/26/2025 10:30 AM EDT Office Visit [facility] - [place] [address] [place] [address] Sierra Choi, POURER CRANE LADLE [address] [place] [address] documented as of this encounter Visit Diagnoses Not on filedocumented in this encounter Care Teams Manager Body Relationship Specialty Start Date End Date Sierra Choi, POURER CRANE LADLE [address] [place] [address] PCP - General Primary Care 11/11/21 Troy Boucher MD [address] [place] [address] Surgeon General Surgery 11/11/21 Hay Parker MD [address] [place] [address] Orthopedic Surgery 05/03/23 documented as of this encounter
--- OUTSIDE RECORDS SUMMARY | 2024-09-28 19:14 | XMS_ITS | Clinical Summary ---
Author Organization [employer] ([place], [place], [place], [place]) Address [address] [place] [address] Care Team Providers Care Credit Adjuster Name Role Phone NguyễnSierra simon Jimmy COELHO Primary Care Provider [phone] Troy Boucher MD Unavailable Hay Parker MD Unavailable [phone] Allergies Active Allergy Reactions Criticality Noted Date Comments Butorphanol Nausea And Vomiting, Rash,Other (See Comments) Low 08/12/2015 Promethazine Nausea And Vomiting, Rash,Other (See Comments) Low 08/12/2015 Medications aspirin 81 MG EC tablet aspirin 81 mg tablet,delay ed release Daily Active memantine (NAMENDA) 10 MG tablet Take 1 tablet (10 mg total) by mouth 2 (two) times daily. 11/30/19 23 Active ALPRAZolam (XANAX) 0.25 MG tablet Take 1 tablet (0.25 mg total) by mouth 3 (three) times daily as needed for anxiety. 11/11/19 23 Active multivitamin with minerals tablet Take 1 tablet by mouth daily. Active hydroCHLOROthiaz poncho (HYDRODIURIL) 12.5 MG tablet TAKE 1 TABLET EVERY DAY 90 tablet 3 12/19/19 24 Active meloxicam (MOBIC) 15 MG tabletIndication s:S/P total knee arthroplasty, right Take 1 tablet (15 mg total) by mouth daily. 90 tablet 3 01/04/20 24 Active tamsulosin (FLOMAX) 0.4 mg cap 24 hr capsule TAKE 1 CAPSULE EVERY DAY 90 capsule 3 01/11/20 24 Active lovastatin (MEVACOR) 20 MG tablet TAKE 1 TABLET EVERY DAY 90 tablet 3 03/02/19 25 Active atenoloL (TENORMIN) 25 MG tablet Take 1 tablet (25 mg total) by mouth 2 (two) times daily. 06/20/19 25 026 Active polyethylene glycol (MIRALAX) 17 gram/dose powder Take 17 g by mouth daily. Active Gemtesa 75 mg tab Take 1 tablet (75 mg total) by mouth every other day. 10/16/19 24 025 Discontinued sucralfate (CARAFATE) 1 gram tablet Take 1 tablet (1 g total) by mouth 4 (four) times daily. 120 tablet 11 11/04/19 24 025 Discontinued pantoprazole (PROTONIX) 40 MG tabletIndication s:Gastritis, bile acid reflux,Gastroeso phageal reflux disease without esophagitis Take 1 tablet (40 mg total) by mouth daily. 90 tablet 3 11/11/19 24 025 Discontinued lidocaine (LIDODERM) 5 % ptmd patchIndications :Strain of lumbar region, initial encounter,Greate r trochanteric bursitis of right hip Place 1 patch on the skin daily for 30 days Remove & Discard patch within 12 hours or as directed by . 30 patch 08/18/19 25 025 cyclobenzaprine (FLEXERIL) 10 MG tabletIndication s:Strain of lumbar region, initial encounter,Greate r trochanteric bursitis of right hip Take 1 tablet (10 mg total) by mouth 2 (two) times daily as needed for muscle spasms for up to 14 days. 28 tablet 08/18/19 25 025 Hospital, Clinic, or Other Facility Administered Medication Ordered Dose Route Frequency Start Date End Date Status lidocaine (XYLOCAINE) injection 1%Indications:Arthritis of right acromioclavicular joint 1 mg OTHER Once 05/21/2022 Active Active Problems Problem Noted Date Diagnosed Date Primary osteoarthritis of right hip 08/17/2024 Strain of right trapezius muscle, initial encoun ter 07/17/2024 Bilateral tinnitus 06/20/2024 Sensorineural hearing loss (SNHL) of both ears 0 06/20/2024 Epigastric pain 08/17/2023 Hemangioma of skin 04/13/2023 History of total knee arthroplasty 04/12/2023 Prediabetes 06/28/2022 Trigger index finger of left hand 01/22/2022 Trigger finger of left hand 01/21/2022 Arthritis of left acromioclavicular joint 2021 Arthritis of right acromioclavicular joint 01/08 Rotator cuff tendonitis, right 01/08/2022 Glenohumeral arthritis, right 01/08/2022 Osteoarthritis of right glenohumeral joint 01/08 Right rotator cuff tendonitis 01/08/2022 Rotator cuff arthropathy of left shoulder 2021 Osteoarthritis of both acromioclavicular joints 01/07/2022 Tendinitis of right rotator cuff 01/07/2022 Acute hepatitis 01/06/2022 Environmental allergies 12/27/2021 Kidney stone 12/27/2021 Polyneuropathy 12/27/2021 Tremor 12/27/2021 General unsteadiness 12/27/2021 Hypercholesterolemia 12/27/2021 Neuropathy 12/27/2021 Allergy to environmental factors 12/27/2021 Arthritis 12/12/2020 Hyperlipidemia 12/12/2020 Allergic rhinitis 06/12/2020 Anxiety 06/12/2020 Retention of urine 06/12/2020 Hypertensive disorder 09/24/2019 Paresthesia 04/17/2018 01/20/2023 Essential tremor 08/28/2015 01/20/2023 Overview (01/20/2023): From Automated Load;Provider: Domenico Boyer;Status: Active Resolved Problems Problem Noted Date Diagnosed Date Resolved Date General unsteadiness 08/28/2015 025 Overview (09/19/2024): From Automated Load;Provider: Domenico Boyer;Status: Active Essential tremor 08/28/2015 09/19/2024 Overview (09/19/2024): From Automated Load;Provider: Domenico Boyer;Status: Active Neuropathy 08/28/2015 09/19/2024 Overview (09/19/2024): From Automated Load;Provider: Domenico Boyer;Status: Active Encounters Date Type Department Care Team Description 09/19/2024 10:30 [place] [address] Sierra Choi APRN Medicare annual wellness visit, subsequent (Primary Dx) 08/17/2024 9:05 AM EDT - 08/17/2024 11:59 PM EDT Hospital Encounter [facility] [address] [place] [address] Malini Ochoa PA-C Right hip pain Discharge Disposition: Home or Self Care 08/17/2024 8:45 [place] [address] Malini Ochoa PA-C Right hip pain (Primary Dx); Strain of lumbar region, initial encounter; Greater trochanteric bursitis of right hip; Primary osteoarthritis of right hip 08/10/2024 10:30 AM EDT - 08/10/2024 11:59 PM EDT Hospital Encounter [facility] [address] [place], [place] [id number] Malini Ochoa PA-C Right-sided low back pain without sciatica, unspecified chronicity Discharge Disposition: Home or Self Care 08/10/2024 10:00 AM EDT Office Visit [address] [address] Malini Ochoa PA-C Right-sided low back pain without sciatica, unspecified chronicity (Primary Dx); Right rotator cuff tendonitis; Strain of right trapezius muscle, subsequent encounter; Arthritis of right acromioclavicular joint; Arthritis of left acromioclavicular joint; Osteoarthritis of right glenohumeral joint; History of lumbar fusion; DDD (degenerative disc disease), lumbar 08/10/2024 Telephone [facility] - [address] [place] [address] Malini Ochoa PA-C other 08/01/2024 Telephone [facility] [address] [facility] [address] [place] [address] Troy Boucher MD Results 07/27/2024 10:45 AM EDT Office Visit [address] [address] Smiley Crenshaw APRN Weak pulse (Primary Dx) 07/27/[address] [address] Malini Ochoa PA-C Right rotator cuff tendonitis; DDD (degenerative disc disease), cervical; Strain of right trapezius muscle 07/24/2024 11:24 AM EDT - 07/24/2024 11:59 PM EDT Hospital Encounter [facility] [address] [place] [address] Matthew Checo, DPM Weak pulse Discharge Disposition: Home or Self Care 07/24/2024 Travel 07/19/[address] [address] Hay Parker MD SCANNED IN PAPER FOR MEDICATION [facility] 07/18/2024 9:45 AM EDT Office Visit [address] [address] Matthew, Checo, DPM Weak pulse (Primary Dx); Neuropathy; Hallux valgus (acquired), left foot; Hallux valgus (acquired), right foot; Hammertoe of left foot; Hammertoe of right foot 07/17/2024 10:45 AM EDT - 07/17/2024 11:59 PM EDT Hospital Encounter [facility] [address] [place] [address] Acute pain of right shoulder; Right elbow pain Discharge Disposition: Home or Self Care 07/17/2024 10:30 AM EDT Office Visit [facility] [address] [address] Malini Ochoa PA-C Acute pain of right shoulder (Primary Dx); Right elbow pain; Arthritis of right acromioclavicular joint; Right rotator cuff tendonitis; Left rotator cuff tear arthropathy; Arthritis of left acromioclavicular joint; Arthritis of right elbow; DDD (degenerative disc disease), cervical; Strain of right trapezius muscle; Osteoarthritis of right glenohumeral joint; Strain of right trapezius muscle, initial encounter 07/12/2024 Orders Only [address] [address] Sierra Choi APRN Neuropathy (Primary Dx) 07/11/[address] [address] Sierra Choi APRN ORDER REQUEST from Last 3 Months Immunizations Name Administration Dates Next Due COVID-19 2022- [employer] (COM IRNATY) 12 YRS + ([id number]) 12/07/2022,12/07/2022 COVID-19 2023-25 PFIZER 12 Y RS+ ([id number]) 11/29/2023 Covid 19 Vaccine, Unspecified 05/05/2020, 021 Covid-19 Vaccine MRNA (PF) 1 2yr+ ([employer]/amBX)([id number]) 05/13/2020,04/22/2020 INFLUENZA QIV ADJUVANTED PF IM ([id number]) 12/01/2020,11/16/2019 INFLUENZA(FLUZONE)_0.5 mL(65 +)TRI HIGH DOSE([id number]) 11/29/2023 Influenza Four-qiv Pf 11/24/2017 Influenza High Dose Preserva tive Free IM ([id number]) 12/07/2022,12/07/2022,11/24/2021 Influenza Quad-qiv Non Pf 10/23/2019,04/2017,12/22/2016,2015 Influenza TIV (IM) 11/24/2021 Influenza Three-TIV Non-PF 4+YRS IM 09/0 02/2019,11/23/2017,12/22/2016,2015 Pneumococcal Conjugate (Prev varsha) 13-Valent 11/21/2014,11/21/2014 Pneumococcal Conjugate Vacci ne (20-Valent) IM 01/24/2023 Pneumococcal, Nos 11/21/2014 Tdap 07/12/2024 Family History Medical History Relation Name Comments Lung cancer Father Arthritis Mother Cancer Other Rheumatologic disease Other Hypertension Sister Relation Name Status Comments Father Mother Other Sister Social History Tobacco Use Types Packs/Day Years Used Date Smoking Tobacco: Never Smokeless Tobacco: Never Alcohol Use Standard Drinks/Week Comments Not Currently 0 (1 standard drink = 0.6 oz pur e alcohol) [facility] - Mental Health Answer Date Recorde [...] Date Vick rded Speak language other than Rwand[place] at home Not on file 03/10/2023 Want [...] on file Sexual Orientation Not on file Last Filed Vital Signs Vital Sign Reading Time Taken Comments Blood Pressure 126/86 09/19/2024 10:23 AM EDT Pulse 79 09/19/2024 10:23 AM EDT Temperature 36.9 C (98.5 F) 09/19/2024 10:23 AM EDT Respiratory Rate 18 08/17/2024 8:51 AM EDT Oxygen Saturation 94% 09/19/2024 10:23 AM EDT Inhaled Oxygen Concentration - - Weight 101.6 kg (224 lb) 09/19/2024 10:23 AM EDT Height 188 cm (6' 2 ) 09/19/2024 10:23 AM EDT Body Mass Index 28.76 09/19/2024 10:23 AM EDT Plan of Treatment Upcoming Encounters Date Type Department Care Team (Late st Contact Info) Description 10/19/2024 9:00 AM EDT Office Visit [facility] [address] [address] Malini Ochoa PA-C [address] [place] [address] 01/24/2025 11:00 AM EST Office Visit [address] [address] Sierra Choi, DIRECTORY OPERATOR [address] [place] [address] 09/26/2025 10:30 AM EDT Office Visit [address] [address] Sierra Choi, DIRECTORY OPERATOR [address] [place] [address] Health Maintenance Due Date Last Done Comments Medicare Subsequent Wellness (year 3+) 01/25/2024 01/24/2023 Influenza Vaccine (#1) 2024 , 12/07/2022, 12/07/2022, Additional history exists Shingles Vaccine (Zoster) (1 of 2) 08/10/2025 Postponed from 07/02/1993 (Vaccine/Supply Not Available) Tobacco Cessation Counseling and Screening (12+) 08/17/2025 08/17/2024 Depression Screening (12+) 09/19/2025 09/19/2024 Respiratory Syncytial Virus (RSV) Adult or (1 - 1-dose 75+ series) 10/16/2025 Postponed from 07/02/2018 (Vaccine/Supply Not Available) COVID-19 VACCINE ( season) 2025 11/29/2023, 12/07/2022, 12/07/2022, Additional history exists Postponed from 05/29/2024 (Vaccine/Supply Not Available) DTAP/TDAP/TD VACCINES (2 - Td or Tdap) 07/12/2034 07/12/2024 Pneumococcal 50+ years Completed , 11/21/2014, 11/21/2014 Falls Risk Screening Completed 09/19/2024, 05/11/2023, 01/24/2023 Medical Devices Implanted Type Area Die Try Out Worker Stamping Device Identifier Shelf Expiration Date Model / Serial / Lot Implants IMPLANTS Bilateral : Eye Description:Bilateral catara cts Procedures Procedure Name Priority Date/Time Associated Diagnosis Comments XR HIP 2 VIEWS RIGHT Routine 08/17/2024 9:24 AM EDT Right hip pain XR LUMBAR SPINE 2 OR 3 VIEWS Routine 08/10/2024 10:45 AM EDT Right-sided low back pain without sciatica, unspecified chronicity US DOPPLER ARTERIAL SEGMENTAL PRESSURE LEGS BILATERAL 3+ LEVELS Routine 07/24/2024 12:34 PM EDT Weak pulse AMB REFERRAL TO PHYSICAL THERAPY EVALUATE, TREAT AND PLAN OF CARE Routine 07/23/2024 9:31 AM EDT Right rotator cuff tendonitis DDD (degenerative disc disease), cervical Strain of right trapezius muscle XR SPINE CERVICAL 2 OR 3 VIEWS Routine 07/17/2024 10:57 AM EDT Acute pain of right shoulder Right elbow pain XR ELBOW 2 VIEWS RIGHT Routine 07/17/2024 10:57 AM EDT Acute pain of right shoulder Right elbow pain XR SHOULDER COMPLETE 2 VIEWS MIN RIGHT Routine 07/17/2024 10:57 AM EDT Acute pain of right shoulder Right elbow pain from Last 3 Months Results * XR hip 2 views right [...] IMG DIAGNOSTIC IMAGING ORDERABL ES Final Result * XR spine lumbar 2 or 3 [...] IMG DIAGNOSTIC IMAGING ORDERABL ES Final Result * US DOPPLER ARTERIAL SEGMENTAL PRESSURE LEGS BILATERAL 3+ LEVELS (07/24/2024 12:34 PM EDT) Anatomical Region Laterality Modality Upper Extremity Ultrasound Checo Castro DPM CV VASCULAR ORDERABLES Final Res ult * AMB REFERRAL TO PHYSICAL THERAPY EVALUATE, TREAT AND PLAN OF CARE (07/23/2024 9:31 AM EDT) Malini Ochoa PA-C OUTPATIENT REFERRAL ORDERABLES Final Result * XR shoulder complete 2 views min right (07/17/2024 10:57 AM EDT) Anatomical Region Laterality Modality X-Ray 07/17/2024 1:57 PM EDT Impressions 07/17/2024 2:02 PM EDT Degenerative changes with no acute bony abnormality. Images reviewed, interpreted, and dictated by Dr. Britni Alicea. Transcribed by Alexandria Burns PA-C. Narrative 07/17/2024 2:02 PM EDT RIGHT SHOULDER SERIES HISTORY: Acute right shoulder pain. COMPARISON: None. FINDINGS: A three view exam demonstrates no acute fracture or dislocation. The joint spaces demonstrate moderate degenerative change. No soft tissue abnormality is seen. Procedure Note Alfredo Alicea MD - 07/17/2024 RIGHT SHOULDER SERIES HISTORY: Acute right shoulder pain. COMPARISON: None. FINDINGS: A three view exam demonstrates no acute fracture or dislocation. The joint spaces demonstrate moderate degenerative change. No soft tissue abnormality is seen. IMPRESSION: Degenerative changes with no acute bony abnormality. Images reviewed, interpreted, and dictated by Dr. Britni Alicea. Transcribed by Alexandria Burns PA-C. Malini Ochoa PA-C IMG DIAGNOSTIC IMAGING ORDERABL ES Final Result * XRAY, ELBOW, 2 VIEWS, RIGHT (07/17/2024 10:57 AM EDT) Anatomical Region Laterality Modality Elbow X-Ray 07/17/2024 1:23 PM EDT Impressions 07/17/2024 1:50 PM EDT Chronic and degenerative findings without acute fracture. CERVICAL SPINE SERIES. HISTORY: Neck pain. FINDINGS: 2 limited views were provided. There is limited evaluation of the cervicothoracic junction as only C1 through the superior aspect of C7 are visualized. There is minimal anterolisthesis of C4 on C5, favor degenerative. The alignment is otherwise normal. There is multilevel degenerative disc disease most pronounced at C5-C6 and C6-C7. The precervical soft tissues are normal. IMPRESSION: Multilevel degenerative findings with no acute osseous abnormality. Images reviewed, interpreted, and dictated by Dr. Abigail Cummings. Transcribed by Elin Mulligan PA-C. Narrative 07/17/2024 1:50 PM EDT RIGHT ELBOW SERIES. HISTORY: Right elbow pain. FINDINGS: Four views show a well-corticated lucency through the olecranon spur, favor chronic. There is degenerative joint disease. There is no joint effusion. There is no acute fracture. Procedure Note Abigail Cummings MD - 07/17/2024 RIGHT ELBOW SERIES. HISTORY: Right elbow pain. FINDINGS: Four views show a well-corticated lucency through the olecranon spur, favor chronic. There is degenerative joint disease. There is no joint effusion. There is no acute fracture. IMPRESSION: Chronic and degenerative findings without acute fracture. CERVICAL SPINE SERIES. HISTORY: Neck pain. FINDINGS: 2 limited views were provided. There is limited evaluation of the cervicothoracic junction as only C1 through the superior aspect of C7 are visualized. There is minimal anterolisthesis of C4 on C5, favor degenerative. The alignment is otherwise normal. There is multilevel degenerative disc disease most pronounced at C5-C6 and C6-C7. The precervical soft tissues are normal. IMPRESSION: Multilevel degenerative findings with no acute osseous abnormality. Images reviewed, interpreted, and dictated by Dr. Abigail Cummings. Transcribed by Elin Mulligan PA-C. us Malini Ochoa PA-C IMG DIAGNOSTIC IMAGING ORDERABL ES Final Result * XR spine cervical 2 or 3 views (07/17/2024 10:57 AM EDT) Anatomical Region Laterality Modality C-spine, T-spine, Neck X-Ray 07/17/2024 1:23 PM EDT Impressions 07/17/2024 1:50 PM EDT Chronic and degenerative findings without acute fracture. CERVICAL SPINE SERIES. HISTORY: Neck pain. FINDINGS: 2 limited views were provided. There is limited evaluation of the cervicothoracic junction as only C1 through the superior aspect of C7 are visualized. There is minimal anterolisthesis of C4 on C5, favor degenerative. The alignment is otherwise normal. There is multilevel degenerative disc disease most pronounced at C5-C6 and C6-C7. The precervical soft tissues are normal. IMPRESSION: Multilevel degenerative findings with no acute osseous abnormality. Images reviewed, interpreted, and dictated by Dr. Abigail Cummings. Transcribed by Elin Mulligan PA-C. Narrative 07/17/2024 1:50 PM EDT RIGHT ELBOW SERIES. HISTORY: Right elbow pain. FINDINGS: Four views show a well-corticated lucency through the olecranon spur, favor chronic. There is degenerative joint disease. There is no joint effusion. There is no acute fracture. Procedure Note Abigail Cummings MD - 07/17/2024 RIGHT ELBOW SERIES. HISTORY: Right elbow pain. FINDINGS: Four views show a well-corticated lucency through the olecranon spur, favor chronic. There is degenerative joint disease. There is no joint effusion. There is no acute fracture. IMPRESSION: Chronic and degenerative findings without acute fracture. CERVICAL SPINE SERIES. HISTORY: Neck pain. FINDINGS: 2 limited views were provided. There is limited evaluation of the cervicothoracic junction as only C1 through the superior aspect of C7 are visualized. There is minimal anterolisthesis of C4 on C5, favor degenerative. The alignment is otherwise normal. There is multilevel degenerative disc disease most pronounced at C5-C6 and C6-C7. The precervical soft tissues are normal. IMPRESSION: Multilevel degenerative findings with no acute osseous abnormality. Images reviewed, interpreted, and dictated by Dr. Abigail Cummings. Transcribed by Elin Mulligan PA-C. Malini Ochoa PA-C IMG DIAGNOSTIC IMAGING ORDERABL ES Final Result from Last 3 Months Insurance [employer] MEDICARE HMO Advance Directives For more information, please contact: [phone] * Full Code (Latest Code Status on File) Date Activated Date Inactivated Comments 03/24/2023 6:28 AM 03/25/2023 8:27 AM Care Teams Credit Adjuster Relationship Specialty Start Date End Date Sierra Choi, DIRECTORY OPERATOR [address] [place] [address] PCP - General Primary Care 11/11/21 [place] [address] [place] [address] Surgeon General Surgery 11/11/21 Hay Parker MD [address] [place] [address] Orthopedic Surgery 05/03/23
--- OUTSIDE RECORDS SUMMARY | 2024-09-28 19:14 | XMS_ITS | Encounter Summary ---
Author Organization [employer] ([place], [place], [place], [place]) Address [address] [place] [address] Care Team Providers Care Skills Trainer Name Role Phone Nguyễnalfred Sierra Marquez APRN Primary Care Provider [phone] Troy oBucher MD Unavailable Hay Parker MD Unavailable [phone] Encounter Details Date Type Department Care Team (Late st Contact Info) Description 06/20/2020 Transcribed Document [facility] Family Medicine [facility] [place] [address] ProviderGama MD [address] [place] [address] Social History Tobacco Use Types Packs/Day Years Used Date Smoking Tobacco: Never Assessed Sex and Gender Information Value Date Recorded Sex Assigned at Not on file Legal Sex Male 5:19 PM CDT Gender Identity Not on file Sexual Orientation Not on file documented as of this encounter Miscellaneous Notes * Cerner Conversion Note - Gama Cornejo MD - 06/20/2020 8:38 AM CDT Pre Procedure Adult Entered On: 06/20/2020 8:44 EDT Performed On: 06/20/2020 8:38 EDT by Vannesa Santiago RN-PATIENT CARE BEDSIDE NON-EXEMPT Height and Weight, Clinical Dosing Height Source : Stated Height Entry Format : [place] Height, Feet : 6 ft(Converted to: 183 cm, 72 Inch) Height, Inches : 2 Inch(Converted to: 0 ft 2 Inch, 5.08 cm) Clinical Height : 187.96 cm Weight Source : Standing scale Weight Entry Format : [place] Clinical Dosing Weight : 107.64 kg Weight, Pounds : 236.8 lb Body Surface Area (BSA) : 2.34 m2 Body Mass Index : 30.5 kg/m2 (HI) Ragland Body Weight : 81 kg Vannesa Santiago RN-PATIENT CARE BEDSIDE NON-EXEMPT - 06/20/2020 8:38 EDT Health Histories Smoking Status : Never (less than 100 in lifetime; none in last 30 days) Smokeless Tobacco Status : Never Vannesa Santiago RN-PATIENT CARE BEDSIDE NON-EXEMPT - 06/20/2020 8:38 EDT Social History (As Of: 06/20/2020 08:44:47 EDT) Tobacco: Smoking Status Never smoker. (Last Updated: 01/19/2016 09:04:14 EST by Laura Stringer RN) Alcohol: Alcohol Use History No. (Last Updated: 01/19/2016 09:04:18 EST by Laura Stringer RN) Substance Abuse: Drug Use Hx: No. (Last Updated: 01/19/2016 09:04:21 EST by Laura Stringer RN) Infectious Disease History Has the patient ever been tested for COVID-19? : Yes, Patient stated results Negative Date of COVID-19 test known? : Yes Date of COVID-19 Test : 06/18/2020 EDT Does patient have symptoms of COVID-19? : No COVID19 Screening : No Experiencing Infectious Disease Symptoms : No symptoms Physical contact outside [place] in the last 30 days : No Infectious Disease History : Chicken pox/Shingles, Measles, Mumps, Other: JAUNDICE WHEN CHILD Tuberculosis Symptoms : None Vannesa Santiago RN-PATIENT CARE BEDSIDE NON-EXEMPT - 06/20/2020 8:38 EDT COVID19 PreProcedure Screening Is this an Emergent or Add on Procedure? : No Date PreProcedure COVID-19 test known? : Yes Date of PreProcedure COVID-19 : 06/18/2020 EDT Has patient been isolated since the test : Yes Exposed to COVID19 symptoms since test? : No Vannesa Santiago RN-PATIENT CARE BEDSIDE NON-EXEMPT - 06/20/2020 8:38 EDT Anesthesia/Transfusion History Family History of Anesthesia Reaction : No prior transfusion(s) Transfusion History : Prior anesthesia without reaction Family History of Anesthesia Reaction : None Intubation History : Intubated other than for surgery in past Vannesa Santiago RN-PATIENT CARE [facility] NON-EXEMPT - 06/20/2020 8:38 EDT Functional Assessment Living Situation : Home Current Home Treatments : None Vannesa Santiago RN-PATIENT CARE [facility] NON-EXEMPT - 06/20/2020 8:38 EDT [place] Suicide Severity Rating Scale (C-SSRS) CSSRS Past Month Wish to be : No CSSRS Past Month Suicidal Thoughts : No CSSRS Lifetime Suicide Behavior : No Suicide Severity Rating Score : 0 Suicide Severity Rating : No Additional Care Required at this time Vannesa Santiago RN-PATIENT CARE [facility] NON-EXEMPT - 06/20/2020 8:38 EDT Psychosocial History Chronic/Terminal Illness w/Freq Visits : No Do You Have a History of the Following? : Patient denies history Currently in Unsafe Situation : Vannesa Paulino RN-PATIENT CARE [facility] NON-EXEMPT - 06/20/2020 8:38 EDT Advance Directive Patient has Advance Directive *Q : Yes, Advance Directive not with the patient Advance Directive Type : Living will Copy Advance Directive Verified/on Chart : Vannesa Paulino RN-PATIENT CARE [facility] NON-EXEMPT - 06/20/2020 8:38 EDT General Info Support Person/Patient Student Union Consultant : Yes Support Person/Pt Rep Name : Justina DENNIS Support Person/Pt Rep Contact Information : [id number] Want Family/Rep/Phys Notified of Admit : No Emergency Contact #1 : Justina Dennis Emergency Contact #1 Emergency Contact #1 Relationship : Spouse Emergency Contact #2 : - Emergency Contact #2 Phone Number : - Emergency Contact #2 Relationship : - Primary Language : Mosotho Preferred Communication Mode : Verbal Communication Barrier : None Beauty Culturist Apprentice Needed : Vannesa Paulino RN-PATIENT CARE [facility] NON-EXEMPT - 06/20/2020 8:38 EDT Sleep Apnea Risk Assmt Hx of Obstructive Sleep Apnea Diagnosis : No Snore Loudly : No Tired, Fatigued, or Sleepy During Day : No Observed Stopping Breathing During Sleep : No Have/Are Being Treated for Hypertension : Yes BMI Greater Than 35 kg/m2 : No Age over 50 Years Old : Yes Neck Circumference Greater Than 40 cm : No Gender Male : Yes STOP-BANG Sleep Apnea Risk Level Score : 3 Vannesa Santiago RN-PATIENT CARE BEDSIDE NON-EXEMPT - 06/20/2020 8:38 EDT Jones Scale Jones Sensory Perception : No impairment Jones Moisture : Rarely moist Jones Activity : Walks frequently Jones Mobility : No limitation Jones Nutrition : Excellent Jones Friction and Shear : No apparent problem Jones Score : 23 Vannesa Santiago RN-PATIENT CARE BEDSIDE NON-EXEMPT - 06/20/2020 8:38 EDT Fall Risk Scales ABCs Fall Injury Risk Identification : None BALLESTEROS Hx Falls Immediate/Within 3 Months : No Ballesteros Secondary Diagnosis : Yes BALLESTEROS Use of Ambulatory Aid : None BALLESTEROS IV Therapy or IV Access : Yes Ballesteros Gait/Transferring : Normal, bedrest, immobile Ballesteros Mental Status : Oriented to own ability Ballesteros Fall Risk Score : 35 BALLESTEROS Fall Scale Risk Level : 25-45 Medium Risk [place] Fall Interventions : Adequate lighting, Bed in low position, Call device within reach, Non-slip footwear, Personal items within reach, Wheels locked Vannesa Santiago RN-PATIENT CARE BEDSIDE NON-EXEMPT - 06/20/2020 8:38 EDT Valuables and Belongings Valuables and Belongings : Clothing, Personal devices Clothing : Common streetwear Clothing Disposition : Bedside Personal Device Disposition : Bedside, With family Personal Devices : Dentures, partial plate, Glasses Vannesa Santiago RN-PATIENT CARE BEDSIDE NON-EXEMPT - 06/20/2020 8:38 EDT Electronically signed by Renny Rodriguez Conversion Security Assurance Specialist Cerner at 06/07/2022 12:28 PM CDT documented in this encounter Plan of Treatment Upcoming Encounters Date Type Department Care Team (Late st Contact Info) Description 10/19/2024 9:00 AM EDT Office Visit [facility] Orthopedics [facility] [address] [place] [phone] Malini Ochoa PA-C [address] [place] [address] 01/24/2025 11:00 AM EST Office Visit [facility] [address] [place] [phone] Sierra Choi, PROGRAM DIRECTOR CABLE TELEVISION [address] [place] [address] 09/26/2025 10:30 AM EDT Office Visit [facility] [address] [place] [address] Sierra Choi, PROGRAM DIRECTOR CABLE TELEVISION [address] [place] [address] documented as of this encounter Visit Diagnoses Not on filedocumented in this encounter Care Teams Skills Trainer Relationship Specialty Start Date End Date Sierra Choi PROGRAM DIRECTOR CABLE TELEVISION [address] [place] [address] PCP - General Primary Care 11/11/21 Troy Boucher MD [address] [place] [address] [address] Surgeon General Surgery 11/11/21 Hay Parker MD [address] [place] [address] Orthopedic Surgery 05/03/23 documented as of this encounter
--- OUTSIDE RECORDS SUMMARY | 2024-09-28 19:14 | XMS_ITS | Encounter Summary ---
Author Organization [employer] ([place], [place], [place], [place]) Address [address] [place] [address] Care Team Providers Care Industrial Painter Name Role Phone Sierra Choi MELITON Primary Care Provider [phone] Mer Boucher MD Unavailable Hay Parker MD Unavailable [phone] Encounter Details Date Type Department Care Team (Late st Contact Info) Description 06/20/2020 Transcribed Document [facility] [place] [facility] [place] [address] ProviderGama MD [address] [place] [address] Social History Tobacco Use Types Packs/Day Years Used Date Smoking Tobacco: Never Assessed Sex and Gender Information Value Date Recorded Sex Assigned at Not on file Legal Sex Male 5:19 PM CDT Gender Identity Not on file Sexual Orientation Not on file documented as of this encounter Miscellaneous Notes * Cerner Conversion Note - Gama ProviderMD - 06/20/2020 9:16 AM CDT [facility] IntraOp Summary Primary Physician: MER BOUCHER MD-KIMBERLY Finalized Date/Time: 06/20/20 09:33:50 Pt. Name: LEANDER DENNIS /Sex: 1945 Male Med Rec #: [id number] Physician: MER BOUCHER MD-KIMBERLY Financial #: [id number] Pt. Type: O Room/Bed: END/ Admit/Disch: 06/20/20 08:12:00 - Institution: [facility] - Case Attendance Entry 1 Entry 2 Entry 3 Case Attendee MER BOUCHER MD-SUR WILSON, BEVERLY NAVARRETE SHANA M, APRN, MD-ANS RAILROAD WATCHMAN-ANS Role Performed Surgeon/Proceduralist, Anesthesiologist of RAILROAD WATCHMAN/Nurse Nurse First Assist First Record Time In 06/20/20 09:11:00 06/20/20 09:11:00 06/20/20 09:11:00 Time Out 06/20/20 09:35:00 06/20/20 09:35:00 06/20/20 09:20:00 Procedure Colonoscopy, Colon Colonoscopy, Colon Colonoscopy, Colon Polypectomy Polypectomy Polypectomy Other Attendee Superficial Wound Closed By: Last Modified By: Angie Cabrera RN Vernon, Joy, Angie Sparks RN 06/20/20 09:33:17 06/20/20 09:33:17 06/20/20 09:33:17 Entry 4 Entry 5 Entry 6 Case Attendee Angie Cabrera Rn BURGESS, CHRISTINA R. WAGLER, CALEB, CRNA-ANS Role Performed Door Captain, First Scrub, First RAILROAD WATCHMAN/Nurse Nurse First Assist Time In 06/20/20 09:11:00 06/20/20 09:11:00 06/20/20 09:19:00 Time Out 06/20/20 09:35:00 06/20/20 09:35:00 06/20/20 09:30:00 Procedure Colonoscopy, Colon Colonoscopy, Colon Colonoscopy, Colon Polypectomy Polypectomy Polypectomy Other Attendee Superficial Wound Closed By: Last Modified By: Angie Cabrera RN Vernon, Joy, Angie Sparks RN 06/20/20 09:33:17 06/20/20 09:33:17 06/20/20 09:33:17 Entry 7 Case Attendee HUMPHREY PAUL APRN, RAILROAD WATCHMAN-ANS Role Performed RAILROAD WATCHMAN/Nurse Nurse First Assist Time In 06/20/20 09:29:00 Time Out 06/20/20 09:35:00 Procedure Colonoscopy, Colon Polypectomy Other Attendee Superficial Wound Closed By: Last Modified By: Angie Cabrera RN 06/20/20 09:33:17 [facility] - Case Attendance Audit 06/20/20 09:33:17 Maintenance Mechanic Helper: [id number] Modifier: [id number] 1 <+> Time Out 1 <*> Procedure Colonoscopy, Colon Polypectomy 2 <+> Time Out 2 <*> Procedure Colonoscopy, Colon Polypectomy 3 <*> Procedure Colonoscopy, Colon Polypectomy 4 <+> Time Out 4 <*> Procedure Colonoscopy, Colon Polypectomy 5 <+> Time Out 5 <*> Procedure Colonoscopy, Colon Polypectomy 6 <*> Procedure Colonoscopy, Colon Polypectomy 7 <+> Time Out 7 <*> Procedure Colonoscopy, Colon Polypectomy 06/20/20 09:30:12 Maintenance Mechanic Helper: [id number] Modifier: [id number] <+> Time Out 6 <*> Procedure Colonoscopy, Colon Polypectomy <+> 7 Case Attendee <+> 7 Role Performed <+> 7 Time In <+> 7 Procedure 06/20/20 09:26:08 Maintenance Mechanic Helper: [id number] Modifier: [id number] 1 <*> Procedure Colonoscopy 2 <*> Procedure Colonoscopy 3 <*> Procedure Colonoscopy 4 <*> Procedure Colonoscopy 5 <*> Procedure Colonoscopy 6 <*> Procedure Colonoscopy 06/20/20 09:20:50 Maintenance Mechanic Helper: [id number] Modifier: [id number] <+> Time Out 3 <*> Procedure Colonoscopy <+> 6 Case Attendee <+> 6 Role Performed <+> 6 Time In <+> 6 Procedure 06/20/20 09:16:32 Maintenance Mechanic Helper: [id number] Modifier: [id number] 1 <+> Time In 1 <*> Procedure Colonoscopy <+> 2 Case Attendee <+> 2 Role Performed <+> 2 Time In <+> 2 Procedure <+> 3 Case Attendee <+> 3 Role Performed <+> 3 Time In <+> 3 Procedure <+> 4 Case Attendee <+> 4 Role Performed <+> 4 Time In <+> 4 Procedure <+> 5 Case Attendee <+> 5 Role Performed <+> 5 Time In <+> 5 Procedure [facility] - Case times Entry 1 Patient In Room Time 06/20/20 09:11:00 Out Room Time 06/20/20 09:35:00 Anesthesia Start Time 06/20/20 09:11:00 Stop Time 06/20/20 09:35:00 Surgery / Procedure Times Start Time 06/20/20 09:16:00 Stop Time 06/20/20 09:33:00 Last Modified By: Angie Cabrera RN 06/20/20 09:33:16 [facility] - Case times Audit 06/20/20 09:33:16 Maintenance Mechanic Helper: [id number] Modifier: [id number] <+> 1 Out Room Time <+> 1 Stop Time <+> 1 Stop Time 06/20/20 09:16:37 Maintenance Mechanic Helper: [id number] Modifier: [id number] <+> 1 Start Time [facility] - Cautery Entry 1 ESU Identification Cautery Type Monopolar ESU ID Number Room 1 ID Type Hospital Number Cautery Settings Cut Setting 2 Coag Setting 25 ESU Grounding Pad Ground Pad Type Adult Grounding Pad Site Right thigh Grounding Pad SAVANNAH GARCIA Applied By Grounding Pad Site Dry, Intact Skin Condition Before Cautery Grounding Pad Site Unchanged Skin Condition After Cautery Last Modified By: Angie Cabrera RN 06/20/20 09:27:13 [facility] - Cultures and Spec Summary Entry 1 Cultrures and Specimens Specimen Ordered: Yes Test(s) Routine/Path-Lab Requested/Final Disposition Last Modified By: Angie Cabrera RN 06/20/20 09:27:17 [facility] - Delays Entry 1 Delay Reason Other Duration 0 Minute(s) Last Modified By: Angie Cabrera RN 06/20/20 09:16:47 [facility] - Departure from OR Entry 1 Integumentary Assessment Integumentary WDL Assessment WDL Transfer/Handoff Transfer to PACU Phase I Post-op Transport Stretcher/Gurney Via Patient Transport Angie Cabrera Rn, Accompanied by YULIET BARNETT CRNA-CARLYN Last Modified By: Angie Cabrera RN 06/20/20 09:22:03 [facility] - Departure from OR Audit 06/20/20 09:22:03 Maintenance Mechanic Helper: [id number] Modifier: [id number] 1 <*> Patient Transport Accompanied by HUMPHREY PAUL APRN, CRNA-ANS [facility] - Endoscopy Details Entry 1 Abdomen Procedure Soft, Non-Tender Assessment Procedure Abdomen 06/20/20 09:12:00 Assessment D/T Radio Frequency Ablation Abdominal Pressure Last Modified By: Angie Cabrera RN 06/20/20 09:18:43 [facility] - Fire Risk Assessment Entry 1 Fire Info Surgical Site or 0- No Incision Above the Xyphoid Open O2 Source 1- Yes (Mask or Cannula) Available Ignition 1- Yes (ESU, Laser, Light Source) Fire Risk 2 Assessment Score Fire Score Fire Risk Yes Assessment Complete Fire Risk Angie Cabrera Rn Assessment Verified By Fire Risk 06/20/20 09:12:00 Assessment Verified Date/Time Fire Risk High Risk Protocol Yes Implemented Standard Fire Yes Safety Precautions Followed Last Modified By: Angie Cabrera RN 06/20/20 09:18:56 [facility] - General Case Balance Truing Inspector 1 Case Information OR Endo 01 [facility] Case Level 1 Room Verified Yes Wound Class III - Contaminated Specialty General Anesthesia Type MAC ASA Class 2 Diagnosis Preop Diagnosis hx of colon cancer Postop Same As Preop No Postop Diagnosis colon polyp Last Modified By: Angie Cabrera RN 06/20/20 09:24:28 [facility] - General Case Data Audit 06/20/20 09:24:28 Maintenance Mechanic Helper: [id number] Modifier: [id number] <+> 1 Postop Diagnosis [facility] - Intraoperative Assessment Entry 1 Valid History / Yes Physical in Chart Preoperative Yes Checklist Reviewed/Evaluated Patient is Latex No Sensitive Level of WDL Consciousness (WDL = Alert, Oriented to Person, Place, and Time) Present Upon IVs Arrival to OR Last Modified By: Angie Cabrera RN 06/20/20 09:19:47 [facility] - Intraoperative Equipment Entry 1 Type Scope Equipment Intraop Monitoring Electrocardiogram Three lead placement (ECG) Electrode Placement Blood Pressure Arm, left upper Location Pulse Oximeter Hand, right Probe Site Antiembolic Devices Scopes Flexible Endoscopes Colonoscope, Peds Used Scope Serial R Number/Identificatio n Number Photo/Video Documentation Photo Yes Video No Last Modified By: Angie Cabrera RN 06/20/20 09:21:04 [facility] - Patient Positioning Entry 1 Procedure Colonoscopy, Colon Polypectomy Body Position Lateral, right side up Left Arm Position Resting at side Right Arm Position Resting at side Left Leg Position Other Right Leg Position Other Position Comments Right leg over left leg, uncrossed Feet Uncrossed Yes Pressure Points Yes Checked Positioned By SAVANNAH GARCIA, HUMPHREY PAUL, BAKER PAINT, RAILROAD WATCHMAN-ANS Position Verified Positioning Yes Verified by Surgeon Last Modified By: Angie Cabrera RN 06/20/20 09:26:09 [facility] - Patient Positioning Audit 06/20/20 09:26:09 Maintenance Mechanic Helper: [id number] Modifier: [id number] 1 <*> Procedure Colonoscopy [facility] - Sign In Entry 1 Patient, Site, Yes Procedure Identified Surgical Consent Yes Confirmed Surgical Site N/A Marked by person performing procedure Airway Hypothermia Risk No Warming Measures No Taken Last Modified By: Angie Cabrera RN 06/20/20 09:21:41 [facility] - Sign Out Entry 1 RN Confirmation Surgical Yes Procedure(s) Identified Instrument, Sponge N/A and Sharps Counts Correct/Documented Equipment Problems N/A Documented Specimen Labeled Yes Correctly Urinary Catheter N/A Documented in IView Safety Checklist Yes Elements Complete? RN Sign Out Angie Cabrera Rn Signature RN Sign Out 06/20/20 09:34:00 Signature Date/Time Plan of Care Outcome - Fire Risk OUTCOME STATEMENT: Goal met Patient is free from injury related to surgical fire Plan of Care Outcome - Pt Positioning OUTCOME STATEMENT: Goal met Absence of signs and symptoms of positioning injury. Plan of Care Outcome - Skin Prep OUTCOME STATEMENT: Goal met Intraoperative care is consistent with measures to prevent infection Plan of Care Outcome - Xray/Images OUTCOME STATEMENT: N/A Absence of observable signs or symptoms of radiation injury Plan of Care Outcome - Counts OUTCOME STATEMENT: N/A Absence of signs and symptoms of injury related to extraneous objects Last Modified By: Angie Carbera RN 06/20/20 09:33:40 [facility] - Surgical Procedures Entry 1 Entry 2 Procedure Colonoscopy Colon Polypectomy Modifiers Additional transverse colon polyp Procedure Description Primary Procedure Yes No Primary Surgeon MER BOUCHER MD-MER COSTA MD-KIMBERLY Start 06/20/20 09:16:00 06/20/20 09:16:00 Stop 06/20/20 09:33:00 06/20/20 09:33:00 Physician States 06/20/20 09:19:00 06/20/20 09:19:00 Cecum Reached Anesthesia Type MAC MAC Specialty General General Wound Class III - Contaminated III - Contaminated Last Modified By: Angie Cabrera RN Vernon, Joy, RN 06/20/20 09:33:47 06/20/20 09:33:47 [facility] - Surgical Procedures Audit 06/20/20 09:33:47 Maintenance Mechanic Helper: [id number] Modifier: [id number] <+> 1 Stop <+> 2 Stop 06/20/20 09:26:06 Maintenance Mechanic Helper: [id number] Modifier: [id number] 1 <*> Procedure Colonoscopy 1 <+> Physician States Cecum Reached <+> 2 Procedure <+> 2 Primary Procedure <+> 2 Primary Surgeon <+> 2 Specialty <+> 2 Start <+> 2 Wound Class <+> 2 Anesthesia Type <+> 2 Additional Procedure Description <+> 2 Physician States Cecum Reached [facility] - Time Out Entry 1 Procedure to be Colonoscopy Performed Time Out Time Out Pause Time 06/20/20 09:15:00 All activity Yes suspended (unless life threatening emergency) Team Verbally Correct patient Confirms Information identity, Consent form is present and accurate, Agreement on the procedure to be done, Correct patient position, Relevant images/results properly labeled/appropriately displayed, Performed in location of procedure after prepped/draped Antibiotic N/A Prophylaxis Administered Or In Progress Within the Last 60 Minutes Beta Frederic N/A Administered Venous N/A Thromboembolism Prophylaxis Required Anticipated Critical Events Surgeon None expected Last Modified By: Angie Cabrera RN 06/20/20 09:28:56 [facility] - Time Out Audit 06/20/20 09:28:56 Maintenance Mechanic Helper: [id number] Modifier: [id number] <+> 1 All activity suspended (unless life threatening emergency) <+> 1 Time Out Pause Time <+> 1 Procedure to be Performed Case Comments <None> Finalized By: Angie Cabrera, RN Document Signatures Signed By: Angie Cabrera RN 06/20/20 09:33 Electronically signed by Jennifer [facility] Conversion Nursing Surgical Services Director Cerner at 06/07/2022 12:21 PM CDT documented in this encounter Plan of Treatment Upcoming Encounters Date Type Department Care Team (Late st Contact Info) Description 10/19/2024 9:00 AM EDT Office Visit [facility] Orthopedics [address] [address] Malini Ochoa PA-C [address] [place] [address] 01/24/2025 11:00 AM EST Office Visit [address] [phone] Sierra Choi, BAKER PAINT [address] [place] [address] 09/26/2025 10:30 AM EDT Office Visit [address] [address] Sierra Choi, BAKER PAINT [address] [place] [address] documented as of this encounter Visit Diagnoses Not on filedocumented in this encounter Care Teams Industrial Painter Relationship Specialty Start Date End Date Sierra Choi BAKER PAINT [address] [place] [address] PCP - General Primary Care 11/11/21 Mer Boucher MD [address] [place] [address] Surgeon General Surgery 11/11/21 Hay Parker MD [address] [place] [address] Orthopedic Surgery 05/03/23 documented as of this encounter
--- OUTSIDE RECORDS SUMMARY | 2024-09-28 19:14 | XMS_ITS | Encounter Summary ---
Author Organization [facility] ([place], [place], [place], [place]) Address [address] [place] [address] Care Team Providers Care Filtration Operator Name Role Phone Sierra Choi APRN Primary Care Provider [phone] Troy Boucher MD Unavailable Hay Parker MD Unavailable [phone] Reason for Visit * Reason Onset Date Comments referral 08/10/2023 Encounter Details Date Type Department Care Team (Late st Contact Info) Description 08/10/2023 Telephone [facility] - [address] [place] [address] Sierra Choi APRN [address] [place] [address] referral Social History Tobacco Use Types Packs/Day Years Used Date Smoking Tobacco: Never Smokeless Tobacco: Never Alcohol Use Standard Drinks/Week Comments Not Currently 0 (1 standard drink = 0.6 oz pur e alcohol) [facility] - Mental Health Answer Date Recorde d [...] Date Vick rded Speak language other than [place] at home Not on file 03/10/2023 Want [...] on file documented as of this encounter Functional Status documented as of this encounter Miscellaneous Notes * Telephone Encounter - Kadi Curry - 08/10/2023 10:40 AM EDT Call Type: Check status of existing referral (Date requested by patient) Next Visit: 10/27/2023 Last Visit: 07/27/2023 Sierra Choi APRN Type of referral / specialty: general surgery Reason for referral/ diagnosis: gall stones Was the referral request previously discussed with provider?: yes Additional information: Patients called in inquiring about an appt with Dr. Boucher for patientto remove gallstones. I seen in the chart that a referral to Dr. Boucher has been generated but didn't see appt date or time. Please notify patient when appt has been scheduled. Caller Name:Justina Relation to patient:spouse Best Call Back documented in this encounter Plan of Treatment Upcoming Encounters Date Type Department Care Team (Late st Contact Info) Description 10/19/2024 9:00 AM EDT Office Visit [facility] [address] [address] Malini Ochoa PA-C [address] [id number] 01/24/2025 11:00 AM EST Office Visit [facility] [address] [address] Sierra Choi APRN [address] [place] [address], [place] [address] 09/26/2025 10:30 AM EDT Office Visit [facility] - [address] [place] [address] Sierra Choi, CHEMICAL ENGRAVER [address] [place] [address] documented as of this encounter Visit Diagnoses Not on filedocumented in this encounter Care Teams Filtration Operator Relationship Specialty Start Date End Date Sierra Choi, CHEMICAL ENGRAVER [address] [place] [address] PCP - General Primary Care 11/11/21 Troy Boucher MD [address] [place] [id number] Surgeon General Surgery 11/11/21 Hay Parker MD [address] [place] [address] Orthopedic Surgery 05/03/23 documented as of this encounter
--- OUTSIDE RECORDS SUMMARY | 2024-09-28 19:14 | XMS_ITS | Encounter Summary ---
Author Organization [facility] ([place], [place], [place], [place]) Address [address] [place] [address] Care Team Providers Care Forest Economics Professor Name Role Phone Jimbo Sierra Marquez APRN Primary Care Provider [phone] Mer Boucher MD Unavailable Hay Parker MD Unavailable [phone] Encounter Details Date Type Department Care Team (Late st Contact Info) Description 06/20/2020 Transcribed Document [facility] [place] [facility] [place] [place] [address] ProviderGama MD [address] [place] [id number] Social History Tobacco Use Types Packs/Day Years Used Date Smoking Tobacco: Never Assessed Sex and Gender Information Value Date Recorded Sex Assigned at Not on file Legal Sex Male 5:19 PM CDT Gender Identity Not on file Sexual Orientation Not on file documented as of this encounter Miscellaneous Notes * Cerner Conversion Note - Gama ProviderMD - 06/20/2020 9:48 AM CDT [facility] AMIRAH Hunter [address] ASCENCION DENNIS :1945 Visit Time:06/20/2020 What to do next Instructions From Your Care Team Diet after Discharge: Resume usual diet as tolerated, No alcoholic beverages Activity after Discharge: As tolerated, No strenuous activity Driving after Discharge: Do not drive for 24 hours May Return to Work/School: Tomorrow Notify Provider of: pain, fever of 101 or greater, or bleeding If biopsies were taken results will be mailed in 7 to 10 days. Copy of procedure report given to patient. Follow-Up Appointments Follow Up with MER BOUCHER MD-KIMBERLY When Only if needed Where: [address] [place] [address]- Medications What How Much When Instructions Next Dose ALPRAZolam 0.25 Milligram(s) Oral Every Day as needed for Other (See Comment) for tremors aspirin 81 Milligram(s) Oral Two Times A Day Duration: 30 Day(s) Then 1 by mouth daily atenolol (atenolol 25 mg oral tablet) 1 Tablet(s) Oral Two Times A Day docusate (Colace 100 mg oral capsule) 2 Capsule(s) Oral Every Day as needed for for constipation gabapentin (gabapentin 100 mg oral capsule) Oral Three Times A Day hydrochlorothiazide 12.5 Milligram(s) Oral Every Day lovastatin (lovastatin 20 mg oral tablet) 1 Tablet(s) Oral Every Day meloxicam 15 Milligram(s) Oral Every Day multivitamin with minerals (Centrum Silver Men's) 1 Tablet(s) Oral Every Day omega-3 polyunsaturated fatty acids (Fish Oil 1000 mg oral capsule) 1 Capsule(s) Oral Every Day Take your medications faithfully. Do NOT skip medication. Do NOT stop taking medications without the direction of a physician. Carry a list of your medications with you at all times, and take this medication list with you to your first follow up visit. Report any side effects. Avoid herbal remedies unless discussed with your physician. As part of your treatment plan, your physician may have prescribed a limited course of a controlled substance. This medication may be given to help people with moderate or severe pain or for other medical conditions, but there are risks involved with treatment. Common side effects may include nausea, constipation, drowsiness, sweating, itching, dry mouth, and rash. More serious side effects may include cognitive and motor impairment, like problems with thinking, concentrating, alertness, and movement (e.g. slowed reflexes), and driving and operating heavy machinery can be dangerous. It is important for you to talk to your physician if you have these side effects or questions. These controlled substances can produce physical dependence and be habit-forming if taken for an extended period of time, which means that the body has gotten used to them and may experience withdrawal symptoms if they are abruptly stopped. Withdrawal symptoms can include runny nose, sweating, goose bumps, diarrhea, abdominal cramping, rapid heartbeat, difficulty sleeping, and nervousness. Please dispose of unused and medications per pharmacy guidance. Education Materials Colon Polyps Polyps are tissue growths inside the body. Polyps can grow in many places, including the large intestine (colon). A polyp may be a round bump or a mushroom-shaped growth. You could have one polyp or several. Most colon polyps are noncancerous (benign). However, some colon polyps can become cancerous over time. Finding and removing the polyps early can help prevent this. What are the causes? The exact cause of colon polyps is not known. What increases the risk? You are more likely to develop this condition if you: ??? Have a family history of colon cancer or colon polyps. ??? Are older than 50 or older than 45 if you are . ??? Have inflammatory bowel disease, such as ulcerative colitis or Crohn's disease. ??? Have certain hereditary conditions, such as: ? Familial adenomatous polyposis. ? Santacruz syndrome. ? Turcot syndrome. ? Peutz???Jeghers syndrome. ??? Are overweight. ??? Smoke cigarettes. ??? Do not get enough exercise. ??? Drink too much alcohol. ??? Eat a diet that is high in fat and red meat and low in fiber. ??? Had childhood cancer that was treated with abdominal radiation. What are the signs or symptoms? Most polyps do not cause symptoms. If you have symptoms, they may include: ??? Blood coming from your rectum when having a bowel movement. ??? Blood in your stool. The stool may look dark red or black. ??? Abdominal pain. ??? A change in bowel habits, such as constipation or diarrhea. How is this diagnosed? This condition is diagnosed with a colonoscopy. This is a procedure in which a lighted, flexible scope is inserted into the anus and then passed into the colon to examine the area. Polyps are sometimes found when a colonoscopy is done as part of routine cancer screening tests. How is this treated? Treatment for this condition involves removing any polyps that are found. Most polyps can be removed during a colonoscopy. Those polyps will then be tested for cancer. Additional treatment may be needed depending on the results of testing. Follow these instructions at home: Lifestyle ??? Maintain a healthy weight, or lose weight if recommended by your health care provider. ??? Exercise every day or as told by your health care provider. ??? Do not use any products that contain nicotine or tobacco, such as cigarettes and e-cigarettes. If you need help quitting, ask your health care provider. ??? If you drink alcohol, limit how much you have: ? 0???1 drink a day for women. ? 0???2 drinks a day for men. ??? Be aware of how much alcohol is in your drink. In the [place] one drink equals one 12 oz bottle of beer (355 mL), one 5 oz glass of wine (148 mL), or one 1?? oz shot of hard liquor (44 mL). Eating and drinking ??? Eat foods that are high in fiber, such as fruits, vegetables, and whole grains. ??? Eat foods that are high in calcium and vitamin D, such as milk, cheese, yogurt, eggs, liver, fish, and broccoli. ??? Limit foods that are high in fat, such as fried foods and desserts. ??? Limit the amount of red meat and processed meat you eat, such as hot dogs, sausage, del toro, and lunch meats. General instructions ??? Keep all follow-up visits as told by your health care provider. This is important. ? This includes having regularly scheduled colonoscopies. ? Talk to your health care provider about when you need a colonoscopy. Contact a health care provider if: ??? You have new or worsening bleeding during a bowel movement. ??? You have new or increased blood in your stool. ??? You have a change in bowel habits. ??? You lose weight for no known reason. Summary ??? Polyps are tissue growths inside the body. Polyps can grow in many places, including the colon. ??? Most colon polyps are noncancerous (benign), but some can become cancerous over time. ??? This condition is diagnosed with a colonoscopy. ??? Treatment for this condition involves removing any polyps that are found. Most polyps can be removed during a colonoscopy. This information is not intended to replace advice given to you by your health care provider. Make sure you discuss any questions you have with your health care provider. Document Revised: 05/25/2018 Document Reviewed: 05/25/2018 [employer] Patient Education ?? 2020 [employer] General Anesthesia, Adult, Care After This sheet gives you information about how to care for yourself after your procedure. Your health care provider may also give you more specific instructions. If you have problems or questions, contact your health care provider. What can I expect after the procedure? After the procedure, the following side effects are common: ??? Pain or discomfort at the IV site. ??? Nausea. ??? Vomiting. ??? Sore throat. ??? Trouble concentrating. ??? Feeling cold or chills. ??? Weak or tired. ??? Sleepiness and fatigue. ??? Soreness and body aches. These side effects can affect parts of the body that were not involved in surgery. Follow these instructions at home: For at least 24 hours after the procedure: ??? Have a responsible adult stay with you. It is important to have someone help care for you until you are awake and alert. ??? Rest as needed. ??? Do not: ? Participate in activities in which you could fall or become injured. ? Drive. ? Use heavy machinery. ? Drink alcohol. ? Take sleeping pills or medicines that cause drowsiness. ? Make important decisions or sign legal documents. ? Take care of children on your own. Eating and drinking ??? Follow any instructions from your health care provider about eating or drinking restrictions. ??? When you feel hungry, start by eating small amounts of foods that are soft and easy to digest (bland), such as toast. Gradually return to your regular diet. ??? Drink enough fluid to keep your urine pale yellow. ??? If you vomit, rehydrate by drinking water, juice, or clear broth. General instructions ??? If you have sleep apnea, surgery and certain medicines can increase your risk for breathing problems. Follow instructions from your health care provider about wearing your sleep device: ? Anytime you are sleeping, including during daytime naps. ? While taking prescription pain medicines, sleeping medicines, or medicines that make you drowsy. ??? Return to your normal activities as told by your health care provider. Ask your health care provider what activities are safe for you. ??? Take [id number] and prescription medicines only as told by your health care provider. ??? If you smoke, do not smoke without supervision. ??? Keep all follow-up visits as told by your health care provider. This is important. Contact a health care provider if: ??? You have nausea or vomiting that does not get better with medicine. ??? You cannot eat or drink without vomiting. ??? You have pain that does not get better with medicine. ??? You are unable to pass urine. ??? You develop a skin rash. ??? You have a fever. ??? You have redness around your IV site that gets worse. Get help right away if: ??? You have difficulty breathing. ??? You have chest pain. ??? You have blood in your urine or stool, or you vomit blood. Summary ??? After the procedure, it is common to have a sore throat or nausea. It is also common to feel tired. ??? Have a responsible adult stay with you for the first 24 hours after general anesthesia. It is important to have someone help care for you until you are awake and alert. ??? When you feel hungry, start by eating small amounts of foods that are soft and easy to digest (bland), such as toast. Gradually return to your regular diet. ??? Drink enough fluid to keep your urine pale yellow. ??? Return to your normal activities as told by your health care provider. Ask your health care provider what activities are safe for you. This information is not intended to replace advice given to you by your health care provider. Make sure you discuss any questions you have with your health care provider. Document Revised: 02/10/2018 Document Reviewed: 09/23/2017 [employer] Patient Education ?? 2020 [employer] Colon Polyps Polyps are tissue growths inside the body. Polyps can grow in many places, including the large intestine (colon). A polyp may be a round bump or a mushroom-shaped growth. You could have one polyp or several. Most colon polyps are noncancerous (benign). However, some colon polyps can become cancerous over time. Finding and removing the polyps early can help prevent this. What are the causes? The exact cause of colon polyps is not known. What increases the risk? You are more likely to develop this condition if you: ??? Have a family history of colon cancer or colon polyps. ??? Are older than 50 or older than 45 if you are . ??? Have inflammatory bowel disease, such as ulcerative colitis or Crohn's disease. ??? Have certain hereditary conditions, such as: ? Familial adenomatous polyposis. ? Santacruz syndrome. ? Turcot syndrome. ? Peutz???Jeghers syndrome. ??? Are overweight. ??? Smoke cigarettes. ??? Do not get enough exercise. ??? Drink too much alcohol. ??? Eat a diet that is high in fat and red meat and low in fiber. ??? Had childhood cancer that was treated with abdominal radiation. What are the signs or symptoms? Most polyps do not cause symptoms. If you have symptoms, they may include: ??? Blood coming from your rectum when having a bowel movement. ??? Blood in your stool. The stool may look dark red or black. ??? Abdominal pain. ??? A change in bowel habits, such as constipation or diarrhea. How is this diagnosed? This condition is diagnosed with a colonoscopy. This is a procedure in which a lighted, flexible scope is inserted into the anus and then passed into the colon to examine the area. Polyps are sometimes found when a colonoscopy is done as part of routine cancer screening tests. How is this treated? Treatment for this condition involves removing any polyps that are found. Most polyps can be removed during a colonoscopy. Those polyps will then be tested for cancer. Additional treatment may be needed depending on the results of testing. Follow these instructions at home: Lifestyle ??? Maintain a healthy weight, or lose weight if recommended by your health care provider. ??? Exercise every day or as told by your health care provider. ??? Do not use any products that contain nicotine or tobacco, such as cigarettes and e-cigarettes. If you need help quitting, ask your health care provider. ??? If you drink alcohol, limit how much you have: ? 0???1 drink a day for women. ? 0???2 drinks a day for men. ??? Be aware of how much alcohol is in your drink. In the [place] one drink equals one 12 oz bottle of beer (355 mL), one 5 oz glass of wine (148 mL), or one 1?? oz shot of hard liquor (44 mL). Eating and drinking ??? Eat foods that are high in fiber, such as fruits, vegetables, and whole grains. ??? Eat foods that are high in calcium and vitamin D, such as milk, cheese, yogurt, eggs, liver, fish, and broccoli. ??? Limit foods that are high in fat, such as fried foods and desserts. ??? Limit the amount of red meat and processed meat you eat, such as hot dogs, sausage, del toro, and lunch meats. General instructions ??? Keep all follow-up visits as told by your health care provider. This is important. ? This includes having regularly scheduled colonoscopies. ? Talk to your health care provider about when you need a colonoscopy. Contact a health care provider if: ??? You have new or worsening bleeding during a bowel movement. ??? You have new or increased blood in your stool. ??? You have a change in bowel habits. ??? You lose weight for no known reason. Summary ??? Polyps are tissue growths inside the body. Polyps can grow in many places, including the colon. ??? Most colon polyps are noncancerous (benign), but some can become cancerous over time. ??? This condition is diagnosed with a colonoscopy. ??? Treatment for this condition involves removing any polyps that are found. Most polyps can be removed during a colonoscopy. This information is not intended to replace advice given to you by your health care provider. Make sure you discuss any questions you have with your health care provider. Document Revised: 05/25/2018 Document Reviewed: 05/25/2018 [employer] Patient Education ?? 2020 [employer] Emergency Awareness and Preventative Care STROKE is an EMERGENCY Every Minute Counts Act FAST and Check for these signs: FACE Does the face look uneven? ARM Does one arm drift down? SPEECH Does their speech sound strange? TIME Call at any sign of stroke Stroke Risk Factors Atrial Fibrillation (irregular heartbeat) Diabetes Family history of stroke Heart Disease Heavy alcohol use High Blood Pressure High Cholesterol Physical inactivity and obesity Smoking Cigarette Smoking The facts are clear, cigarette smoking will shorten your life. Smoking can cause many illnesses along the way. As a healthcare provider, we recommend that you stop smoking. Assistance with quitting is available by contacting 9-546-KGRJNOW. This is a free resource providing counseling, support, and referral. Or you may contact your personal physician. [place] Suicide Prevention Lifeline: The National Suicide Prevention Lifeline is a national network of local crisis centers that provides free and confidential emotional support to people in suicidal crisis or emotional distress 24 hours a day, 7 days a week. Don't Wait! Stop a Heart Attack Before it Starts What is a heart attack? A heart attack is damage or to a part of the heart from severely decreased or lack of blood flow to the heart. Over time, arteries can become narrow from the buildup of fat and cholesterol, which is called plaque. The plaque can rupture causing a blood clot to form. When the blood clot forms, the artery can become severely narrowed or completely blocked, causing a heart attack. Heart attack is the leading cause of in the [place]. 85% of muscle damage occurs within the first 2 hours. Delay in the recognition of heart attack symptoms increases the chances of . Know the early symptoms of a heart attack: Nausea Feeling of fullness in chest Jaw Pain Pain that travels down one or both arms Fatigue/being tired Anxiety Back Pain Chest pressure, squeezing, or discomfort Shortness of breath Sweating, or a cold sweat Feeling of impending doom There are unusual signs of a heart attack, too! Women, the elderly, and diabetics may present with atypical symptoms: Fainting/dizziness Weakness Confusion Risk Factors for a Heart Attack Some heart disease risk factors, such as age and family history, cannot be changed. Others, like smoking and lack of exercise, can be changed. Smoking High Cholesterol High Blood Pressure Family History Obesity Age Gender (Males are at higher risk) Lack of Exercise Diabetes Diet Stress Excessive Alcohol Intake If you or someone you know is experiencing the signs and symptoms of a heart attack, DON???T DELAY. Call immediately and seek help. If someone collapses, perform CPR! Do not attempt to drive if you are having symptoms of heart attack. Hands-Only CPR Why Hands-Only CPR? Hands-Only CPR has been shown to be as effective as conventional CPR for cardiac arrests that occur outside of a hospital. Survival depends on immediately receiving CPR from someone nearby. How do you perform Hands-Only CPR? There are two easy steps: Call 9-1-1 if you see a teen or adult collapse Push hard and fast in the center of the chest at a beat of 100 beats per minute. Save a life! 4 WAYS TO GET AHEAD OF SEPSIS SEPSIS is a MEDICAL EMERGENCY. Time matters! Infections put you and your family at risk for a life-threatening condition called sepsis. Sepsis is the body's extreme response to an infection. It is life-threatening, and without timely treatment, sepsis can rapidly lead to tissue damage, organ failure, and . Sepsis happens when an infection you already have-in your skin, lungs, urinary tract or somewhere else-triggers a chain reaction throughout your body. 1 PREVENT INFECTIONS Take good care of chronic conditions. Talk to your doctor about getting the recommended vaccines. 2 PRACTICE GOOD HYGIENE Wash your hands frequently. Keep cuts or open sores clean and covered until they are healed. 3 KNOW THE SYMPTOMS Confusion or disorientation Shortness of breath High heart rate Fever, shivering, or feeling very cold Extreme pain or discomfort Clammy or sweaty skin 4 ACT FAST Get medical care IMMEDIATELY if you suspect sepsis or if you have an infection that is not getting better or is getting worse. To learn more about sepsis and how to prevent infections, visit www.cdc.gov/sepsis. Test Results Laboratory or Other Results This Visit (last charted value for your 06/20/2020 visit) Microbiology 06/18/2020 8:55 AM SARS-CoV-2 (COVID19 PCR): Negative Patient Name:ASCENCION DENNIS Clark I have received this information and was given the opportunity to ask questions. Patient/Rivet Spinner Name: Patient/Rivet Spinner Signature: Relationship to Patient: Clinician/Hospital Rivet Spinner Signature: Date: documented in this encounter Plan of Treatment Upcoming Encounters Date Type Department Care Team (Late st Contact Info) Description 10/19/2024 9:00 AM EDT Office Visit [facility] [place] [phone] Malini Ochoa PA-C [address] [place] [id number] 01/24/2025 11:00 AM [place] [phone] Sierra Choi APRN [address] [place] [phone] 09/26/2025 10:30 AM EDT Office Visit [address] [phone] Sierra Choi APRN [address] [place] [address] documented as of this encounter Visit Diagnoses Not on filedocumented in this encounter Care Teams Forest Economics Professor Relationship Specialty Start Date End Date Sierra Choi APRN [address] [place] [phone] PCP - General Primary Care 11/11/21 Mer Boucher MD [address] [place] [id number] Surgeon General Surgery 11/11/21 Hay Parker MD [address] [place] [id number] Orthopedic Surgery 05/03/23 documented as of this encounter
--- OUTSIDE RECORDS SUMMARY | 2024-09-28 19:14 | XMS_ITS | Clinical Summary ---
Author Organization [facility] Address [address] [place] [address] Care Team Providers Care Soft Work Cigar Machine Operator Name Role Phone Jesse Santiago MD Primary Care Provider Allergies Active Allergy Reactions Criticality Noted Date Comments Promethazine Hcl Rash Low 09/21/2019 Butorphanol Rash Low 09/21/2019 Medications Flaxseed, Linseed, (FLAXSEED OIL) 1000 MG capsule Take 1 capsule by mouth Daily. Active docusate sodium (COLACE) 100 MG capsule Take 100 mg by mouth 2 (Two) Times a Day. Active Multiple Vitamins-Minera ls (MULTIVITAMIN ADULT PO) Take 1 tablet by mouth Daily. Active [place]-3 Fatty Acids (FISH OIL) 1000 MG capsule capsule Take 1,000 mg by mouth Daily With Breakfast. Active ALPRAZolam (XANAX) 0.25 MG tablet Take 0.25 mg by mouth 3 (Three) Times a Day As Needed (as needed for tremors). Active atenolol (TENORMIN) 25 MG tablet Take 25 mg by mouth Daily. Active hydroCHLOROthia zide (HYDRODIURIL) 12.5 MG tablet Take 12.5 mg by mouth Daily. Active lovastatin (MEVACOR) 20 MG tablet Take 20 mg by mouth Every Night. Active HYDROcodone-norma taminophen (NORCO) 10-325 MG per tabletIndicatio ns:Spondylolist hesis at L4-L5 level,S/P lumbar fusion Take 1 tablet by mouth Every 4 (Four) Hours As Needed for Moderate Pain for up to 40 doses. 40 tablet 09/26/2019 Active aspirin 81 MG EC tablet Take 1 tablet by mouth Daily. Resume 09/27/19 09/26/2019 Active meloxicam (MOBIC) 15 MG tablet Take 1 tablet by mouth Daily. May resume 1 month after surgery 09/26/2019 Active tamsulosin (FLOMAX) 0.4 MG capsule 24 hr capsule Take 2 capsules by mouth Daily. 28 capsule 09/26/2019 Active Active Problems Problem Noted Date Diagnosed Date Leukocytosis, likely reactive 09/26/2019 Postoperative urinary retention 09/25/2019 Acute postoperative pain 09/25/2019 Spondylolisthesis at L4-L5 level 09/24/2019 S/P lumbar fusion 09/24/2019 HTN (hypertension) 09/24/2019 Hyperlipidemia 09/24/2019 Immunizations Immunization Administration Dates Next Due COVID-19 (PFIZER) Purple Cap Monovalent 05/14/19 21,04/22/2020 Social History Tobacco Use Types Packs/Day Years Used Date Smoking Tobacco: Never Smokeless Tobacco: Never Alcohol Use Standard Drinks/Week Comments Never 0 (1 standard drink = 0.6 oz pur e alcohol) AUDIT-C Answer Date Recorded Q1: How often do you have a drink containing alc ohol? Never 09/21/2019 Average Number of Drinks Not on file 020 Frequency of Binge Drinking Not on file 08/23 Abuse Screen Answer Date Recorded Unsafe at Home or Work/School Not on file Feels Threatened by Someone? Not on file 10/2022 Does Anyone Keep You from Co ntacting Others or Doint Things Outside the Home? Not on file 11/29/2022 Physical Sign of Abuse Present Not on file 1 Housing Stability Answer Date Recorded Current Living Arrangements Not on file 10/2022 Potentially Unsafe Housing Conditions Not on ladarius e 11/29/2022 Family and Community Support Answer Rob e Recorded Help with Day-to-Day Activities Not on file 11/29/2022 Lonely or Isolated Not on file 11/29/2022 Employment Answer Date Recorded Do you want help finding or keeping work or a taj b? Not on file 11/29/2022 Disabilities Answer Date Recorded Concentrating, Remembering, or Making Decisions Difficulty Not on file 11/29/2022 Doing Errands Independently Difficulty Not on fi le 11/29/2022 Education Answer Date Recorded Help with school or training? Not on file Preferred Language Not on file 11/29/2022 Sex and Gender Information Value Date Recorded Sex Assigned at Not on file Legal Sex Male 1:18 PM EDT Gender Identity Not on file Sexual Orientation Not on file Last Filed Vital Signs Vital Sign Reading Time Taken Comments Blood Pressure 146/91 09/26/2019 12:12 PM EDT Pulse 100 09/26/2019 12:12 PM EDT Temperature 36.6 C (97.9 F) 09/26/2019 12:12 PM EDT Respiratory Rate 18 09/26/2019 12:12 PM EDT Oxygen Saturation 96% 09/26/2019 12:12 PM EDT Inhaled Oxygen Concentration - - Weight 110 kg (242 lb) 09/24/2019 7:02 AM EDT Height 188 cm (6' 2 ) 09/24/2019 7:02 AM EDT Body Mass Index 31.07 09/24/2019 7:02 AM EDT Plan of Treatment Health Maintenance Due Date Last Done Comments LIPID PANEL 1943 TDAP/TD VACCINES (1 - Tdap) 07/02/1962 Pneumococcal Vaccine 50+ (1 of 1 - PCV) 07/02/1993 ZOSTER VACCINE (1 of 2) 07/02/1993 RSV Vaccine - Adults (1 - 1- dose 75+ series) 07/02/2018 ANNUAL PHYSICAL 09/21/2019 COVID-19 Vaccine (3 - season) 2023, 04/22/2020 INFLUENZA VACCINE 11/21/2024 11/16/2019 Medical Devices Implanted Type Area Collections Analyst Device Identifier Shelf Expiration Date Model / Serial / Lot Allogr Bone Vivigen Celluar Matrx Fz 5cc - [id number] - [id number] Implanted:Qt y: 1 on 09/24/2019 by Prashant Magaña MD at [facility] Implant N/A: Spine Lumbar [facility] [id number] 09/11/2020 [id number] / [id number] Scrw Expedium Pa Ti 7x40mm - [id number] Implanted:Qt y: 1 on 09/24/2019 by Prashant Magaña MD at [facility] Implant N/A: Spine Lumbar DEPUY SPINE [id number] / / N/A Scrw Expedium Pa Ti 7x45mm - [id number] Implanted:Qt y: 1 on 09/24/2019 by Prashant Magaña MD at [facility] Implant N/A: Spine Lumbar DEPUY SPINE [id number] / / N/A Scrw Expedium Pa Ti 7x50mm - [id number] Implanted:Qt y: 2 on 09/24/2019 by Prashant Magaña MD at [facility] Implant N/A: Spine Lumbar DEPUY SPINE [id number] / / N/A George Expedium Prebnt Ti 5.5x40mm - [id number] Implanted:Qt y: 2 on 09/24/2019 by Prashant Magaña MD at [facility] Implant N/A: Spine Lumbar DEPUY SPINE [id number] / / N/A Scrw Vi[address] - [id number] Implanted:Qt y: 4 on 09/24/2019 by Prashant Magaña MD at [facility] Implant N/A: Spine Lumbar DEPUY SPINE [id number] / / N/A Spacr Tpal Peek [id number] - [id number] Implanted:Qt y: 1 on 09/24/2019 by Prashant Magaña MD at [facility] Implant N/A: Spine Lumbar DEPUY SPINE [id number] / / N/A Insurance [employer] MEDICARE ADVANTAGE MEDICARE A & B Advance Directives Documents on File Type Date Recorded Patient Sand Filler Expl anation LIVING WILL - SCAN 09/21/2019 11:00 AM BACILIO ING WILL, BHLEX, 09/13/2003 * CPR (Attempt to Resuscitate) (Latest Code Status on File) Date Activated Date Inactivated Comments 09/24/2019 12:02 PM 09/26/2019 5:41 PM Question Answer Comments Code Status (Patient has no pulse and is not breathing): CPR (Attempt to Resuscitate) Medical Interventions (Patie nt has pulse or is breathing): Full Care Teams Soft Work Cigar Machine Operator Relationship Specialty Start Date End Date Jesse Santiago MD [address] [place] [address] PCP - General Family Medicine 09/21/19
--- OUTSIDE RECORDS SUMMARY | 2024-09-28 19:14 | XMS_ITS | Encounter Summary ---
Author Organization [employer] ([place], [place], [place], [place]) Address [address] [place] [address] Care Team Providers Care Ground Water Pump Installer Name Role Phone NguyễnSierra simon Jimmy COELHO Primary Care Provider [phone] Troy Boucher MD Unavailable Hay Parker MD Unavailable [phone] Reason for Visit * Reason Comments Medication Refill Encounter Details Date Type Department Care Team (Late st Contact Info) Description 09/29/2022 Refill [facility] Orthopedics [facility] [address] [place] [address] Hay Parker MD [address] [place] [address] Social History Tobacco Use Types Packs/Day Years Used Date Smoking Tobacco: Never Smokeless Tobacco: Never Alcohol Use Standard Drinks/Week Comments Not Currently 0 (1 standard drink = 0.6 oz pur e alcohol) Sex and Gender Information Value Date Recorded Sex Assigned at Not on file Legal Sex Male 5:19 PM CDT Gender Identity Not on file Sexual Orientation Not on file documented as of this encounter Plan of Treatment Upcoming Encounters Date Type Department Care Team (Late st Contact Info) Description 10/19/2024 9:00 AM EDT [facility] [address] [place] [address] Malini Ochoa PA-C [address] [place] [address] 01/24/2025 11:00 AM EST Office Visit [address] [address] Sierra Choi, SUGGESTION CLERK [address] [place] [address] 09/26/2025 10:30 AM EDT Office Visit [address] [address] Sierra Choi, SUGGESTION CLERK [address] [place] [address] documented as of this encounter Visit Diagnoses Not on filedocumented in this encounter Care Teams Ground Water Pump Installer Relationship Specialty Start Date End Date Sierra Choi SUGGESTION CLERK [address] [place] [address] PCP - General Primary Care 11/11/21 Troy Boucher MD [address] [place] [address] Surgeon General Surgery 11/11/21 Hay Parker MD [address] [place] [address] Orthopedic Surgery 05/03/23 documented as of this encounter
--- OUTSIDE RECORDS SUMMARY | 2024-09-28 19:14 | XMS_ITS | Encounter Summary ---
Author Organization [employer] ([place], [place], [place], [place]) Address [address] [place] [address] Care Team Providers Care Site Safety Representative Name Role Phone Jimbo Sierra Marquez APRN Primary Care Provider [phone] Troy Boucher MD Unavailable Hay Parker MD Unavailable Encounter Details Date Type Department Care Team (Late st Contact Info) Description 06/20/2020 Transcribed Document [facility] Family Medicine [address] [place] [address] ProviderGama MD [address] [place] [address] Social History Tobacco Use Types Packs/Day Years Used Date Smoking Tobacco: Never Assessed Sex and Gender Information Value Date Recorded Sex Assigned at Not on file Legal Sex Male 5:19 PM CDT Gender Identity Not on file Sexual Orientation Not on file documented as of this encounter Miscellaneous Notes * Cerner Conversion Note - Gama Cornejo MD - 06/20/2020 9:47 AM CDT Patient Education Materials Follows: Colon Polyps Polyps are tissue growths inside [...] ? Santacruz syndrome. ? Turcot syndrome. ? Peutz?Jeghers syndrome. ??? Are overweight. ??? Smoke cigarettes. [...] alcohol, limit how much you have: ? 0?1 drink a day for women. ? 0?2 drinks a day for men. ??? Be aware of how much alcohol is in your drink. In the [place] one drink equals one 12 oz bottle of beer (355 mL), one 5 oz glass of wine (148 mL), or one 1? oz shot of hard liquor (44 mL). [...] provider. Document Revised: 05/25/2018 Document Reviewed: 05/25/2018 [employer] Patient Education ? 2020 [employer] General Anesthesia, Adult, Care After This [...] activities are safe for you. ??? Take djzv-nmk-eysycbs and prescription medicines only as told by [...] provider. Document Revised: 02/10/2018 Document Reviewed: 09/23/2017 [employer] Patient Education ? 2020 [employer]. Colon Polyps Polyps are tissue growths inside [...] ? Santacruz syndrome. ? Turcot syndrome. ? Peutz?Jeghers syndrome. ??? Are overweight. ??? Smoke cigarettes. [...] alcohol, limit how much you have: ? 0?1 drink a day for women. ? 0?2 drinks a day for men. ??? Be aware of how much alcohol is in your drink. In the [place] one drink equals one 12 oz bottle of beer (355 mL), one 5 oz glass of wine (148 mL), or one 1? oz shot of hard liquor (44 mL). [...] provider. Document Revised: 05/25/2018 Document Reviewed: 05/25/2018 [employer] Patient Education ? 2019 [employer]. documented in this encounter Plan of Treatment Upcoming Encounters Date Type Department Care Team (Late st Contact Info) Description 10/19/2024 9:00 AM EDT Office Visit [facility] Orthopedics [address] [address] Malini Ochoa PA-C [address] [place] [address] 01/24/2025 11:00 AM EST Office Visit [address] [address] Sierra Choi APRN [address] [place] [address] 09/26/2025 10:30 AM EDT Office Visit [address] [address] Sierra Choi APRN [address] [place] [address] documented as of this encounter Visit Diagnoses Not on filedocumented in this encounter Care Teams Site Safety Representative Relationship Specialty Start Date End Date , Sierra Marquez, VENEER SORTER [address] [place] [address] PCP - General Primary Care 11/11/21 Troy Boucher MD [address] [place] [address] Surgeon General Surgery 11/11/21 Hay Parker MD [address] [place] [address] Orthopedic Surgery 05/03/23 documented as of this encounter
--- OUTSIDE RECORDS SUMMARY | 2024-09-28 19:14 | XMS_ITS | Encounter Summary ---
Author Organization [employer] ([place], [place], [place], [place]) Address [address] [place] [address] Care Team Providers Care Instructional Facilitator Name Role Phone Sierra Choi APRN Primary Care Provider [phone] Troy Boucher MD Unavailable Hay Parker MD Unavailable [phone] Reason for Visit * Reason Onset Date Comments CT Results 08/05/2023 Encounter Details Date Type Department Care Team (Late st Contact Info) Description 08/05/2023 Telephone [facility] Primary Care - [place] [address] [place] [address] Sierra Choi APRN [address] [place] [address] CT Results Social History Tobacco Use Types Packs/Day Years Used Date Smoking Tobacco: Never Smokeless Tobacco: Never Alcohol Use Standard Drinks/Week Comments Not Currently 0 (1 standard drink = 0.6 oz pur e alcohol) [facility] - Mental Health Answer [...] Date Vick rded Speak language other than Hungarian at home Not on file 03/10/2023 Want [...] encounter Miscellaneous Notes * Telephone Encounter - Katelyn Kerr MA - 08/05/2023 12:40 PM EDT Can you review * Telephone Encounter - Issa Crenshaw - 08/05/2023 11:41 AM EDT Message Reason: Patient calling to obtain test results Type of Test: CT Ordering Provider: Next Visit: 10/27/2023 Last Visit: 07/27/2023 Sierra Choi APRN Test performed on: 08/01 Test performed at: Results in chart? Yes Reason for contacting provider if not ordering provider? Additional information: Caller Name: Justina Dennis Relation to patient: spouse Best Call Back OK to leave message on voicemail: documented in this encounter Plan of Treatment Upcoming Encounters Date Type Department Care Team (Late st Contact Info) Description 10/19/2024 9:00 AM EDT Office Visit [facility] Orthopedics [address] [address] Malini Ochoa PA-C [address] [place] [address] 01/24/2025 11:00 AM EST Office Visit [facility] Primary Care [address] [address] Sierra Choi, EMERGENCY MEDICAL TECHNICIAN BASIC [address] [place] [address] 09/26/2025 10:30 AM EDT Office Visit [facility] Primary Care [facility] [address] [place] [address] Sierra Choi, EMERGENCY MEDICAL TECHNICIAN BASIC [address] [place] [address] documented as of this encounter Visit Diagnoses Not on filedocumented in this encounter Care Teams Instructional Facilitator Relationship Specialty Start Date End Date Sierra Choi, EMERGENCY MEDICAL TECHNICIAN BASIC [address] [place] [address] PCP - General Primary Care 11/11/21 Troy Boucher MD [address] [place] [address] [address] Surgeon General Surgery 11/11/21 Hay Parker MD [address] [place] [address] Orthopedic Surgery 05/03/23 documented as of this encounter
--- OUTSIDE RECORDS SUMMARY | 2024-09-28 19:14 | XMS_ITS | Encounter Summary ---
Author Organization [employer] ([place], [place], [place], [place]) Address [address] [place] [address] Care Team Providers Care Aviation Electronic Warfare Operator Name Role Phone Sierra Gallegos APRN Primary Care Provider [phone] Troy Boucher MD Unavailable Hay Parker MD Unavailable [phone] Reason for Visit * Reason Onset Date Comments ORDER REQUEST 07/11/2024 Encounter Details Date Type Department Care Team (Late st Contact Info) Description 07/11/2024 Telephone [facility] Primary Care - [address] [address] Sierra Gallegos APRN [address] [place] [address] ORDER REQUEST Social History Tobacco Use Types Packs/Day Years Used Date Smoking Tobacco: Never Smokeless Tobacco: Never Alcohol Use Standard Drinks/Week Comments Not Currently 0 (1 standard drink = 0.6 oz pur e alcohol) [facility] - Mental Health Answer Date Recorde [...] encounter Miscellaneous Notes * Telephone Encounter - Snehal Butler CMA - 07/13/2024 10:35 AM EDT Called and let this patient know a referral has been sent. * Telephone Encounter - Fantasma Tenorio - 07/11/2024 12:55 PM EDT FROM: Maryuri Oates TO: [facility] [[id number]] SUBJECT: Order Request PROVIDER: SIERRA GALLEGOS [[id number]] DEPARTMENT: [facility] [[id number]] ENCOUNTER REASON FOR CALL: ORDER REQUEST ENCOUNTER TYPE: Telephone REASON FOR CALL: Order or Lab or Durable Medical Equipment DME or Other Medical Supplies Request
PATIENT CALLING TO OBTAIN ORDER FOR: DME aka Durable Medical Equipment
TYPE OF DURABLE MEDICAL EQUIPMENT: Diabetic Shoes
QUANTITY OF DURABLE MEDICAL EQUIPMENT NEEDED: 1 pair
DIAGNOSIS/REASON FOR ORDER: Neuropathy
DISCUSSED WITH PROVIDER? No
IF NO, WAS APPOINTMENT OFFERED? No
IF NO APPOINTMENT OFFERED, EXPLAIN: Was seen 06/19/24
ORDER TO BE SENT TO: N/A
LAST VISIT: 2024-06-19
NEXT VISIT: 2024-09-20
MESSAGE PRIORITY: High
ADDITIONAL INFORMATION: Patients called stating patient needs diabectic shoes for neuropathy, lack of feeling in feet.Patients stated an authroization needs to be sent to insurance for approval. If an appointmentis needed, please call patients Justina [phone] CALLER'S NAME: Justina Dennis RELATION TO PATIENT: Spouse [2] PREFERRED LANGUAGE: Somali BEST CALL BACK PHONE NUMBER: Home Phone: ([phone]),Mobile Phone: ([phone]) WHAT IS THE BEST WAY FOR THE OFFICE TO CONTACT YOU?: OK to leave message on voicemail documented in this encounter Plan of Treatment Upcoming Encounters Date Type Department Care Team (Late st Contact Info) Description 10/19/2024 9:00 AM EDT Office Visit [facility] Orthopedics [address] [address] Malini Ochoa PA-C [address] [place], [place] [id number] 01/24/2025 11:00 AM EST Office Visit [address] [address] Sierra Gallegos APRN [address] [place] [address] 09/26/2025 10:30 AM EDT Office Visit [address] [address] Sierra Gallegos, HEAD SCHOOL CUSTODIAN [address] [place] [address] documented as of this encounter Visit Diagnoses Not on filedocumented in this encounter Care Teams Aviation Electronic Warfare Operator Relationship Specialty Start Date End Date Sierra Gallegos, HEAD SCHOOL CUSTODIAN [address] [place] [address] PCP - General Primary Care 11/11/21 [place] [address] [place] [address] Surgeon General Surgery 11/11/21 Hay Parker MD [address] [place] [address] Orthopedic Surgery 05/03/23 documented as of this encounter
--- OUTSIDE RECORDS SUMMARY | 2024-09-28 19:14 | XMS_ITS | Encounter Summary ---
Author Organization [employer] ([place], [place], [place], [place]) Address [address] [place] [address] Care Team Providers Care Rn Clinical Documentation Specialist Name Role Phone Sierra Choi Jimmy COELHO Primary Care Provider [phone] Troy Boucher MD Unavailable Hay Parker MD Unavailable [phone] Reason for Visit * Reason Comments New Med Request Encounter Details Date Type Department Care Team (Late st Contact Info) Description 04/25/2023 Refill [facility] Orthopedics - [address] [address] Hay Parker MD [address] [place] [address] S/P total knee arthroplasty, right (Primary Dx) Social History Tobacco Use Types [...] Date Vick rded Speak language other than Dominican at home Not on file 03/10/2023 Want [...] Description 10/19/2024 9:00 AM EDT Office Visit [facility] Orthopedics [address] [address] Malini Ochoa PA-C [address] [place] [address] 01/24/2025 11:00 AM EST Office Visit [place] [phone] Sierra Choi PROPELLER MECHANIC [address] [place] [phone] 09/26/2025 10:30 AM EDT Office Visit [address] [address] Sierra Choi, PROPELLER MECHANIC [address] [place] [address] documented as of this encounter Visit Diagnoses Diagnosis S/P total knee arthroplasty, right- Primary documented in this encounter Care Teams Rn Clinical Documentation Specialist Relationship Specialty Start Date End Date Sierra Choi PROPELLER MECHANIC [address] [place] [address] PCP - General Primary Care 11/11/21 Troy Boucher MD [address] [address] Surgeon General Surgery 11/11/21 Hay Parker MD [address] [place] [address] Orthopedic Surgery 05/03/23 documented as of this encounter
--- OUTSIDE RECORDS SUMMARY | 2024-09-28 19:15 | XMS_ITS | Encounter Summary ---
Author Organization [employer] ([place], [place], [place], [place]) Address [address] [place] [address] Care Team Providers Care Auto Dealership Porter Name Role Phone Sierra Choi APRN Primary Care Provider [phone] Troy Boucher MD Unavailable Hay Parker MD Unavailable [phone] Reason for Visit * Reason Onset Date Comments returning call 03/22/2023 Encounter Details Date Type Department Care Team (Late st Contact Info) Description 03/22/2023 Telephone [facility] Primary Care [address] [address] Sierra Choi APRN [address] [place] [address] returning call Social History Tobacco Use Types Packs/Day Years Used Date Smoking Tobacco: Never Smokeless Tobacco: Never Alcohol Use Standard Drinks/Week Comments Not Currently 0 (1 standard drink = 0.6 oz pur e alcohol) [facility] - Mental Health Answer Date Recorde [...] Date Vick rded Speak language other than Filipino at home Not on file 03/10/2023 Want [...] encounter Miscellaneous Notes * Telephone Encounter - Mary Rayray - 03/23/2023 10:19 AM EST is wanting to provide the office with surgeon fax number. states they have the original paper work that fill out for his clearance. She just wanted to provide the number in case the office need it for any reason. Dr. Parker RT SPECIALIST * Telephone Encounter - Danielle Gary - 03/22/2023 3:48 PM EST Last Visit: Next Visit: 03/22/23 Caller Message (please include as much detail as possible)? Pt returning call from office Is follow up action needed? yes Explain: call back returning phone call Caller Name: Justina Dennis Relation to patient: spouse Best Call Back OK to leave message on voicemail: yes RT SPECIALIST documented in this encounter Plan of Treatment Upcoming Encounters Date Type Department Care Team (Late st Contact Info) Description 10/19/2024 9:00 AM EDT Office Visit [facility] Orthopedics - [address] [address] Malini Ochoa PA-C [address] [place], [place] [id number] 01/24/2025 11:00 AM EST Office Visit [facility] [address] [place] [address] Sierra Choi, HELMET HAT BRIM CUTTER [address] [place] [address] 09/26/2025 10:30 AM EDT Office Visit [facility] [address] [place] [address] Sierra Choi, HELMET HAT BRIM CUTTER [address] [place] [address] documented as of this encounter Visit Diagnoses Not on filedocumented in this encounter Care Teams Auto Dealership Porter Relationship Specialty Start Date End Date Sierra Choi HELMET HAT BRIM CUTTER [address] [place] [address] PCP - General Primary Care 11/11/21 [place] [address] [place] [address] Surgeon General Surgery 11/11/21 Hay Parker MD [address] [place] [address] Orthopedic Surgery 05/03/23 documented as of this encounter
--- OUTSIDE RECORDS SUMMARY | 2024-09-28 19:15 | XMS_ITS | Encounter Summary ---
Author Organization [employer] ([place], [place], [place], [place]) Address [address] [place] [address] Care Team Providers Care Drain Tile Machine Operator Name Role Phone Sierra Choi APRN Primary Care Provider Troy Boucher MD Unavailable Hay Parker MD Unavailable [phone] Reason for Visit * Reason Onset Date Comments Resquesting call back 03/23/2023 Encounter Details Date Type Department Care Team (Late st Contact Info) Description 03/23/2023 Telephone [facility] - [place] [address] [place] [address] Sierra Choi APRN [address] [place] [address] Resquesting call back Social History Tobacco Use Types Packs/Day Years Used Date Smoking Tobacco: Never Smokeless Tobacco: Never Alcohol Use Standard Drinks/Week Comments Not Currently 0 (1 standard drink = 0.6 oz pur e alcohol) [facility] - Mental Health Answer Date Recorde [...] Date Vick rded Speak language other than Belarusian at home Not on file 03/10/2023 Want [...] encounter Miscellaneous Notes * Telephone Encounter - Danielle Gary - 03/23/2023 9:38 AM EST Last Visit: 03/22/23 Next Visit: Caller Message (please include as much detail as possible)? Pt called requesting a call back Is follow up action needed? Yes Explain: call back Caller Name: Justina Dennis Relation to patient: spouse Best Call Back OK to leave message on voicemail: yes FLUXER documented in this encounter Plan of Treatment Upcoming Encounters Date Type Department Care Team (Late st Contact Info) Description 10/19/2024 9:00 AM EDT Office Visit [facility] [place] [phone] Malini Ochoa PA-C [address] [place], [place] [id number] 01/24/2025 11:00 AM EST Office Visit [address] [address] Sierra Choi APRN [address] [place] [address] 09/26/2025 10:30 AM EDT Office Visit [address] [address] Sierra Choi, MACHINE RIVETER [address] [place] [address] documented as of this encounter Visit Diagnoses Not on filedocumented in this encounter Care Teams Drain Tile Machine Operator Relationship Specialty Start Date End Date Sierra Choi, MACHINE RIVETER [address] [place] [address] PCP - General Primary Care 11/11/21 [place] [address] [place] [address] [address] Surgeon General Surgery 11/11/21 Hay Parker MD [address] [place] [address] Orthopedic Surgery 05/03/23 documented as of this encounter
--- OUTSIDE RECORDS SUMMARY | 2024-09-28 19:15 | XMS_ITS | Referral Summary ---
Author Organization [employer] ([place], [place], [place], [place]) Address [address] [place] [address] Care Team Providers Care Perfumer Name Role Phone Sierra Choi APRN Primary Care Provider [phone] Troy Boucher MD Unavailable Hay Parker MD Unavailable [phone] Encounters Date Type Department Care Team Description 09/19/2024 10:30 AM EDT Office Visit [facility] [address] [address] Sierra Choi APRN Medicare annual wellness visit, subsequent (Primary Dx) 08/17/2024 9:05 AM EDT - 08/17/2024 11:59 PM EDT Hospital Encounter [facility] [address] [place] [address] Malini Ochoa PA-C Right hip pain Discharge Disposition: Home or Self Care 08/17/2024 8:45 AM EDT Office Visit [address] [address] Malini Ochoa PA-C Right hip pain (Primary Dx); Strain of lumbar region, initial encounter; Greater trochanteric bursitis of right hip; Primary osteoarthritis of right hip 08/10/2024 Telephone [facility] [place] [facility] [place] [address] [place] [address] Malini Ochoa PA-C other 08/10/2024 10:30 AM EDT - 08/10/2024 11:59 PM EDT Hospital Encounter [facility] [address] [place] [address] Malini Ochoa PA-C Right-sided low back pain without sciatica, unspecified chronicity Discharge Disposition: Home or Self Care 08/10/2024 10:00 AM EDT Office Visit [address] [address] Malini Ochoa PA-C Right-sided low back pain without sciatica, unspecified chronicity (Primary Dx); Right rotator cuff tendonitis; Strain of right trapezius muscle, subsequent encounter; Arthritis of right acromioclavicular joint; Arthritis of left acromioclavicular joint; Osteoarthritis of right glenohumeral joint; History of lumbar fusion; DDD (degenerative disc disease), lumbar 08/01/2024 Telephone [facility] [address] [facility] [address] [address] Troy Boucher MD Results 07/27/2024 Orders Only [address] [address] Malini Ochoa PA-C Right rotator cuff tendonitis; DDD (degenerative disc disease), cervical; Strain of right trapezius muscle 07/27/2024 10:45 AM EDT Office Visit [facility] [address] [address] Smiley Crenshaw APRN Weak pulse (Primary Dx) 07/24/2024 Travel 07/24/2024 11:24 AM EDT - 07/24/2024 11:59 PM EDT Hospital Encounter [facility] Echocardiography [address] [place] [address] Checo Castro DPM Weak pulse Discharge Disposition: Home or Self Care 07/19/2024 Telephone [place] [address] [place] [phone] Hay Parker MD SCANNED IN PAPER FOR MEDICATION OFFICER FROM [employer] 07/18/2024 9:45 AM EDT Office Visit [address] [address] Checo Castro, RONI Weak pulse (Primary Dx); Neuropathy; Hallux valgus (acquired), left foot; Hallux valgus (acquired), right foot; Hammertoe of left foot; Hammertoe of right foot 07/17/2024 10:45 AM EDT - 07/17/2024 11:59 PM EDT Hospital Encounter [facility] [address] [place] [address] Acute pain of right shoulder; Right elbow pain Discharge Disposition: Home or Self Care 07/17/2024 10:30 AM EDT Office Visit [address] [address] Malini Ochoa PA-C Acute pain of right shoulder (Primary Dx); Right elbow pain; Arthritis of right acromioclavicular joint; Right rotator cuff tendonitis; Left rotator cuff tear arthropathy; Arthritis of left acromioclavicular joint; Arthritis of right elbow; DDD (degenerative disc disease), cervical; Strain of right trapezius muscle; Osteoarthritis of right glenohumeral joint; Strain of right trapezius muscle, initial encounter 07/12/2024 Orders Only [address] [address] Sierra Choi APRN Neuropathy (Primary Dx) 07/11/[address] [address] Sierra Choi APRN ORDER REQUEST from Last 3 Months Allergies Active Allergy Reactions Criticality Noted Date [...] MG tabletIndication s:Strain of lumbar region, initial encounter,Ena r trochanteric bursitis of right hip Take [...] (09/19/2024): From Automated Load;Provider: Domenico Boyer;Status: Active Immunizations Name Administration Dates Next Due COVID-19 2022- LiveStub (COM IRNATY) 12 YRS + ([id number]) 12/07/2022,12/07/2022 COVID-19 2023-25 PFIZER 12 Y RS+ ([id number]) 11/29/2023 Covid 19 Vaccine, Unspecified 05/05/2020, 021 Covid-19 Vaccine MRNA (PF) 1 2yr+ (Wefunder/HipLogic)([id number]) 05/13/2020,04/22/2020 INFLUENZA QIV ADJUVANTED PF IM ([id number]) 12/01/2020,11/16/2019 INFLUENZA(FLUZONE)_0.5 mL(65 +)TRI HIGH DOSE([id number]) 11/29/2023 Influenza Four-qiv Pf 11/24/2017 Influenza High Dose Preserva tive Free IM ([id number]) 12/07/2022,12/07/2022,11/24/2021 Influenza Quad-qiv Non Pf 10/23/2019,04/2017,12/22/2016,2015 Influenza TIV (IM) 11/24/2021 Influenza Three-TIV Non-PF 4+YRS IM 09/0 02/2019,11/23/2017,12/22/2016,2015 Pneumococcal Conjugate (Prev varsha) 13-Valent 11/21/2014,11/21/2014 Pneumococcal Conjugate Vacci ne (20-Valent) IM 01/24/2023 Pneumococcal, Nos 11/21/2014 Tdap 07/12/2024 Social History Tobacco Use Types Packs/Day Years Used Date Smoking Tobacco: Never Smokeless Tobacco: Never Alcohol Use Standard Drinks/Week Comments Not Currently 0 (1 standard drink = 0.6 oz pur e alcohol) [facility] - Mental Health Answer Date Recorde d [...] Date Vick rded Speak language other than Russian at home Not on file 03/10/2023 Want [...] AM EDT Office Visit [facility] [address] [address] Malini Ochoa PA-C [address] [place] [address] 01/24/2025 11:00 AM EST Office Visit [address] [address] Sierra Choi, ACTUARIAL TECHNICIAN [address] [place] [address] 09/26/2025 10:30 AM EDT Office Visit [address] [address] Sierra Choi, ACTUARIAL TECHNICIAN [address] [place] [address] Medical Devices Implanted Type Area Applied Research Director Device Identifier Shelf Expiration Date Model / [...] Abigail Cummings. Transcribed by Leif Barber PA-C us Malini Ochoa PA-C IMG DIAGNOSTIC IMAGING [...] Ihsan Obando MD us Malini Ochoa PA-C IMG DIAGNOSTIC IMAGING ORDERABL ES Final Result * US DOPPLER ARTERIAL SEGMENTAL PRESSURE LEGS BILATERAL 3+ LEVELS (07/24/2024 12:34 PM EDT) Anatomical Region Laterality Modality Upper Extremity Ultrasound Checo Castro DPM CV VASCULAR ORDERABLES Final Res ult * AMB REFERRAL TO PHYSICAL THERAPY EVALUATE, TREAT AND PLAN OF CARE (07/23/2024 9:31 AM EDT) us Malini Ochoa PA-C OUTPATIENT REFERRAL ORDERABLES Final [...] by Alexandria Burns PA-C. Malini Ochoa PA-C [facility] DIAGNOSTIC IMAGING ORDERABL ES Final Result * [...] reviewed, interpreted, and dictated by Dr. Abigail Cumimngs. Transcribed by Elin Mulligan PA-C. Malini Ochoa PA-C IMG DIAGNOSTIC IMAGING ORDERABL ES Final Result from Last 3 [place] [address] [employer] MEDICARE HMO Advance Directives For more information, please contact: [phone] * Full Code (Latest Code Status on File) Date Activated Date Inactivated Comments 03/24/2023 6:28 AM 03/25/2023 8:27 AM Care Teams Perfumer Relationship Specialty Start Date End Date Sierra Choi, ACTUARIAL TECHNICIAN [address] [place] [address] PCP - General Primary Care 11/11/21 Troy Boucher MD [address] [place] [address] [address] Surgeon General Surgery 11/11/21 Hay Parker MD [address] [place] [id number] Orthopedic Surgery 05/03/23
--- OUTSIDE RECORDS SUMMARY | 2024-09-28 19:15 | XMS_ITS | Encounter Summary ---
Author Organization [employer] ([place], [place], [place], [place]) Address [address] [place] [address] Care Team Providers Care Cheese Wrapper Name Role Phone Sierra Choi Jimmy COELHO Primary Care Provider [phone] Troy Boucher MD Unavailable Hay Parker MD Unavailable [phone] Reason for Referral * Diagnostic X-Ray (Routine) - Closed Specialty Diagnoses / Procedures Referred By Contac t Referred To Contact Diagnoses Other specified pre-operative examination Essential hypertension, malignant Pure hypercholesterolemia Procedures X-ray chest PA and lateral aHy Parker MD [address] [place] [id number] Phone: tel: fax: Referral ID Status Reason Start Date Expiration Date Visits Re quested Visits Authorized [id number] Closed 03/17/2023 09/13/2023 1 1 Encounter Details Date Type Department Care Team (Latest Contact Info) Description 03/17/2023 Outside Orders [facility] Admitting [address] [place] [address] [place] [address] Hay Parker MD [address] [place] [address] Other specified pre-operative examination (Primary Dx); Essential hypertension, malignant; Pure hypercholesterolemia Social History Tobacco Use Types Packs/Day Years Used Date Smoking Tobacco: Never Smokeless Tobacco: Never Alcohol Use Standard Drinks/Week Comments Not Currently 0 (1 standard drink = 0.6 oz pur e alcohol) [facility] - Mental Health Answer Date Recorde [...] Date Vick rded Speak language other than Chilean at home Not on file 03/10/2023 Want [...] Functional Status documented as of this encounter Plan of Treatment Upcoming Encounters Date Type Department Care Team (Late st Contact Info) Description 10/19/2024 9:00 AM EDT Office Visit [facility] [address] [address] Malini Ochoa PA-C [address] [place], [place] [phone] 01/24/2025 11:00 AM EST Office Visit [address] [address] Sierra Choi APRN [address] [place] [address] 09/26/2025 10:30 AM EDT Office Visit [address] [address] Sierra Choi, FWS FACULTY ASSISTANT [address] [place] [address] documented as of this encounter Results * ECG 12 lead (03/17/2023 11:00 AM EST) VENTRICULAR RATE EKG/MIN 56 BPM GE MUSE ATRIAL RATE (MCT) 56 BPM GE MUSE NC Interval 156 ms GE MUSE QRS-INTERVAL (MSEC) 86 ms GE MUSE QT Interval 424 ms GE MUSE QTC Interval 409 ms GE MUSE P [place] 70 degrees GE MUSE R AXIS (MCT) -16 degrees GE MUSE T Wave [place] 23 degrees GE MUSE [place] Diagnosis Sinus bradycardia with occasional premature ventricular complexes Otherwise normal ECG No previous ECGs available Confirmed by Mellissa ORDAZ RICHARD ([id number]) on 03/17/2023 2:33:37 PM GE MUSE 03/17/2023 11:0 0 AM EST 03/17/2023 2:33 PM EST us Hay Parker MD ECG ORDERABLES Final Result GE MUSE * X-ray chest PA and lateral (03/17/2023 10:53 AM EST) Anatomical Region Laterality Modality Chest X-Ray 03/17/2023 11:3 3 AM EST Impressions 03/17/2023 11:48 AM EST No acute cardiopulmonary process . Images reviewed, interpreted, and dictated by Dr. Isma Joseph. Transcribed by Live Dunlap PA-C. Narrative 03/17/2023 11:48 AM EST TWO VIEW CHEST 03/17/2023 10:45 AM HISTORY: Preoperative exam for pulmonary clearance. Hypertension. Colon cancer. COMPARISON: None. FINDINGS: The heart is normal in size . The mediastinum is unremarkable . The lungs are hyperinflated with flattening of the diaphragms. There are chronic interstitial changes. The lungs are otherwise clear . There is no pneumothorax . The osseous structures are unremarkable . Procedure Note Isma Joseph MD - 03/17/2023 TWO VIEW CHEST 03/17/2023 10:45 AM HISTORY: Preoperative exam for pulmonary clearance. Hypertension. Colon cancer. COMPARISON: None. FINDINGS: The heart is normal in size . The mediastinum is unremarkable . The lungs are hyperinflated with flattening of the diaphragms. There are chronic interstitial changes. The lungs are otherwise clear . There is no pneumothorax . The osseous structures are unremarkable . IMPRESSION: No acute cardiopulmonary process . Images reviewed, interpreted, and dictated by Dr. Isma Joseph. Transcribed by Live Dunlap PA-C. Hay S Elena BUCK IMG DIAGNOSTIC IMAGING ORDERAB LES Final Result * (ABNORMAL) Comprehensive metabolic panel (03/17/2023 10:44 AM EST) Sodium 141 136 - 145 meq/L 03/17/2023 11:16 AM [facility] Potassium 4.5 3.5 - 5.1 meq/L 03/17/2023 11:16 AM [facility] Chloride 105 98 - 107 meq/L 03/17/2023 11:16 AM [facility] CO2 31 21 - 32 meq/L 03/17/2023 11:16 AM [facility] Calcium 9.6 8.5 - 10.1 mg/dL 03/17/2023 11:16 AM [facility] Glucose 95 70 - 99 mg/dL 03/17/2023 11:16 AM [facility] BUN 19(H) 7 - 18 mg/dL 03/17/2023 11:16 AM [facility] Creatinine 0.97 0.70 - 1.20 mg/dL 03/17/2023 11:16 AM [facility] BUN/Creatinine 20 03/17/2023 11:16 AM [facility] Albumin 3.8 3.4 - 5.0 g/dL 03/17/2023 11:16 AM [facility] Alkaline Phosphatase 85 46 - 116 U/L 03/17/2023 11:16 AM [facility] ALT 28 12 - 78 U/L 03/17/2023 11:16 AM [facility] AST 19 15 - 37 U/L 03/17/2023 11:16 AM [facility] Total Bilirubin 1.4(H) 0.2 - 1.0 mg/dL 03/17/2023 11:16 AM [facility] Protein, Total 7.0 6.4 - 8.2 gm/dL 03/17/2023 11:16 AM [facility] Anion Gap 10(L) 11 - 22 03/17/2023 11:16 AM [facility] A/G Ratio 1.2 03/17/2023 11:16 AM [facility] Globulin 3.2 g/dL 03/17/2023 11:16 AM [facility] Osmolality Calc 283.3 11:16 AM [facility] eGFR (mL/min/1.73m2) >60 >=60 mL/min/1.7 3m2 03/17/2023 11:16 AM [facility] Comment:ESTIMATED GFR IS NOT ACCURATE CREATININE CLEARANCE IN PREDICTING GLOMERULAR FILTRATION RATE. ESTIMATED GFR IS NOT APPLICABLE FOR DIALYSIS PATIENTS. Blood Venipuncture / Unknown 03/17/2023 10:44 AM EST 03/17/2023 10:46 AM EST us Hay S Elena BUCK LAB BLOOD ORDERABLES Final Res ult [facility] [address] [place], [place] [id number] [phone] * (ABNORMAL) CBC with automated diff (03/17/2023 10:44 AM EST) WBC 8.5 4.8 - 10.8 K/ L 03/17/2023 10:52 AM [facility] RBC 4.76 3.80 - 5.20 M/ L 03/17/2023 10:52 AM [facility] Hemoglobin 15.6 12.8 - 17.4 GM/DL 03/17/2023 10:52 AM [facility] Hematocrit 46.5 39.0 - 51.0 % 03/17/2023 10:52 AM [facility] MCV 98 81 - 101 fL 03/17/2023 10:52 AM [facility] MCH 32.8 27.0 - 34.0 pg 03/17/2023 10:52 AM [facility] MCHC 33.5 32.0 - 36.0 GM/DL 03/17/2023 10:52 AM [facility] RDW 13.1 11.5 - 14.5 % 03/17/2023 10:52 AM [facility] Platelets 190 150 - 400 K/CU MM 03/17/2023 10:52 AM [facility] MPV 9.8 9.4 - 12.4 fL 03/17/2023 10:52 AM [facility] Nucleated Red Blood Cell 0.0 0 - 0.2 % 03/17/2023 10:52 AM [facility] % Neutros 64 37 - 80 % 03/17/2023 10:52 AM [facility] % Lymphs 21 10 - 50 % 03/17/2023 10:52 AM [facility] % Monos 11 5 - 13 % 03/17/2023 10:52 AM [facility] % Eos 3 0 - 7 % 03/17/2023 10:52 AM [facility] % Baso 1 0 - 3 % 03/17/2023 10:52 AM [facility] NRBC Absolute 0.00 0 - 0.12 K/ul 03/17/2023 10:52 AM [facility] # Neutros 5.40 2.00 - 6.90 K/ L 03/17/2023 10:52 AM [facility] # Lymphs 1.81 0.60 - 3.40 K/ L 03/17/2023 10:52 AM [facility] # Monos 0.90 0.00 - 0.90 K/ L 03/17/2023 10:52 AM EST [facility] # Eos 0.26 0.00 - 0.70 K/ L 03/17/2023 10:52 AM EST [facility] # Baso 0.06 0.00 - 0.20 K/ L 03/17/2023 10:52 AM EST [facility] Immature Granulocytes-Re lative 0.60(H) 0.00 - 0.00 % 03/17/2023 10:52 AM EST [facility] # IG 0.05(H) 0.00 - 0.00 K/uL 03/17/2023 10:52 AM EST [facility] Blood Venipuncture / Unknown 03/17/2023 10:44 AM EST 03/17/2023 10:46 AM EST Narrative [facility] - 03/17/2023 10:52 AM EST When CBC w/ Auto Diff is ordered the lab will add a Manual Differential as a quality check at no additional charge if: Lymphocytes greater than seventy five percent with normal or increased WBC Monocytes greater than Fifteen percent Basophil greater than four percent Bands >10% or several immature myeloids are seen on scan Blast? Flag noted Atypical Lymph flag noted us Hay S Elena BUCK LAB BLOOD ORDERABLES Final Res ult [facility] [address] [place] [address] documented in this encounter Visit Diagnoses Diagnosis Other specified pre-operative examination- Primary Essential hypertension, malignant Pure hypercholesterolemia Other specified pre-operative examination Essential hypertension, malignant Pure hypercholesterolemia documented in this encounter Care Teams Cheese Wrapper Relationship Specialty Start Date End Date Sierra Choi, FWS FACULTY ASSISTANT [address] [place] [address] PCP - General Primary Care 11/11/21 [place] [address] [place] [address] [address] [place] [address] Surgeon General Surgery 11/11/21 Hay Parker MD [address] [place], [place] [id number] Orthopedic Surgery 05/03/23 documented as of this encounter
[2024-09-28 20:08] LABS: Hematocrit 40.9 % (42.0-52.0); Hemoglobin 13.6 g/dL (14.1-18.0); Immature Granulocytes % 1.2 %; Mean Corpuscular HGB Conc 33.3 g/dL (31.8-35.4); Mean Corpuscular Hemoglobin 32.8 pg (27.0-31.2); Mean Corpuscular Volume 98.6 fl (80-94); Nucleated Red Blood Cells % 0 %; Platelet Count 186 K/mm3 (142-424); Red Blood Count 4.15 M/mm3 (4.60-6.20); Red Cell Distribution Width-SD 49.1 fL; White Blood Count 9.3 K/mm3 (4.8-10.8)
[2024-09-28 20:18] LABS: Alanine Aminotransferase 23 U/L (12-78); Albumin Level 3.7 g/dl (3.5-5.0); Albumin/Globulin Ratio 1.8 (1.1-1.8); Alkaline Phosphatase 64 U/L (38-126); Anion Gap 6.9 mEq/L (5-15); Aspartate Amino Transferase 29 U/L (17-59); Bilirubin,Total 0.9 mg/dl (0.2-1.3); Blood Urea Nitrogen 19 mg/dl (9-20); Calcium 9.2 mg/dl (8.4-10.2); Carbon Dioxide 30 mmol/L (22.0-30.0); Chloride 104 mmol/L (98-107); Creatinine,Serum 0.90 mg/dl (0.66-1.25); Estimated Glomerular Filt Rate 81 ml/min (>60); GFR (African American) 98 ML/MIN (>60); Globulin 2.1 g/dL (1.3-3.2); Glucose 160 mg/dl (74-100); Potassium 3.9 mmoL/L (3.5-5.1); Sodium 137 mmol/L (136-145); Total Protein,Serum 5.8 g/dl (6.3-8.2)
[2024-09-28 20:23] LABS: D-Dimer 1.69 ug/mL (0.0-0.5)
[2024-09-28 20:31] LABS: Troponin I 0.04 ng/ml (0.00-0.034)
--- NOTE | 2024-09-28 20:53 | CT_ITS ---
PROCEDURE INFORMATION: Exam: CTA Chest With Contrast Exam date and time: 09/28/2024 9:08 PM Age: 79 years old Clinical indication: Other: Elevated d-dimer, syncope TECHNIQUE: Imaging protocol: Computed tomographic angiography of the chest with contrast. Exam focused on the arteries. 3D rendering (Not supervised by radiologist): MIP and/or 3D reconstructed images were created by the technologist. Radiation optimization: All CT scans at this facility use at least one of these dose optimization techniques: automated exposure control; mA and/or kV adjustment per patient size (includes targeted exams where dose is matched to clinical indication); or iterative reconstruction. Contrast material: ISO 370; Contrast volume: 70 ml; Contrast route: INTRAVENOUS (IV); COMPARISON: No relevant prior studies available. FINDINGS: Limitations: Evaluation mildly limited by motion artifact. Pulmonary arteries: No pulmonary emboli identified. Aorta: No aortic aneurysm or dissection. Lungs: A few small calcified pulmonary granulomas. No consolidation. No pulmonary edema. Pleural spaces: No pneumothorax or pleural effusion. Heart: No cardiomegaly. No pericardial effusion. Coronary arteries: Moderate coronary artery calcifications. Lymph nodes: Tiny calcified mediastinal and right hilar lymph nodes, suggestive of old granulomatous disease. Kidneys: Simple appearing bilateral renal cysts; no routine follow-up recommended. Bones/joints: No acute osseous abnormality. Soft tissues: Unremarkable. IMPRESSION: 1. No acute findings. 2. No pulmonary emboli identified. 3. 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
[2024-09-28] MEDS: 0.9 % SODIUM CHLORIDE 50 ML VIAL 40 ML IV (21:14)
[2024-09-28] MEDS: SODIUM CHLORIDE 0.9% 10ML SYR (RAD ONLY) 10 ML IV (21:15)
[2024-09-28] MEDS: IOPAMIDOL-370 (76%);100ML BOTTLE 70 ML IV (21:15)
[2024-09-28 23:50] LABS: Troponin I 0.04 ng/ml (0.00-0.034)
[2024-09-29 00:14] VITALS: BP 156/106; PULSE 64; RESP 17; O2SAT 97
[2024-09-29 01:01] VITALS: BP 138/90; PULSE 76; RESP 16; TEMP 36.6; O2SAT 98
--- NOTE | 2024-09-29 13:22 | PC.NURSE ---
, Justina called back to report patient already has a cardiology doctor within 10 minutes and patient is already est. with and will f/u with them.
== END 2024-09-29 01:02 | disposition home or self-care (01) ==
PROVIDERS: Emergency Provider Student in an Organized Health Care Education/Training Program
DX: R55 Syncope and collapse (principal)
CPT/HCPCS: 71275; 80053; 84484; 85025; 85378; 93005; 99284; Q9967